=== PATIENT | male | born 1965 | race Caucasian/White ===

== ENCOUNTER 2016-10-08 22:21 | Inpatient (IN) ==
[2016-10-08] MEDS ORDERED: Ondansetron 4 MG/2 ML VIAL IVP ONE (23:40)
[2016-10-08] MEDS ORDERED: *HR* Morphine 2 MG/ML SYRINGE IVP ONE (23:40)
[2016-10-08] MEDS ORDERED: 0.9 % Sodium Chloride 1,000 ML IVC ONE (23:40)
[2016-10-08 23:57] LABS: Bilirubin,Urine Small (Negative); Blood,Urine Negative (Negative); Clarity,Urine Clear (Clear); Color,Urine Yellow (Yellow); Glucose,Urine (UA) >=1000 mg/dL (Normal); Ketones,Urine 40 mg/dL (Negative); Leukocyte Esterase,Urine Negative (Negative); Nitrite,Urine Negative (Negative); PH,Urine 5.5 pH Units (5.0-8.0); Protein,Urine 100 mg/dL (Neg-Trace); Specific Gravity,Urine > 1.030 (1.010-1.025); Urobilinogen,Urine Normal (Normal)
[2016-10-09 00:04] LABS: Basophils % 0.2 %; Eosinophils # 0.2 K/mcL (0.0-0.6); Eosinophils % 2.2 %; Hematocrit 50.4 % (37.5-50.1); Hemoglobin 18.4 g/dL (12.9-16.9); Immature Granulocytes % 0.1 % (0-4); Lymphocytes # 1.6 K/mcL (0.6-4.6); Mean Corpuscular HGB Conc 36.5 g/dL (31.6-35.5); Mean Corpuscular Hemoglobin 30.4 pg (28.0-33.3); Mean Corpuscular Volume 83.3 fL (83.0-100.0); Mean Platelet Volume 11.1 fL (9.4-12.4); Monocytes # 0.9 K/mcL (0.0-1.3); Monocytes % 10.5 %; Neutrophils # 6.1 K/mcL (1.6-8.9); Platelet Count 211 K/mcL (140-400); Red Blood Count 6.05 M/mcL (4.19-5.50); Red Cell Distribution Width 12.6 % (11.5-14.5)
[2016-10-09 00:11] LABS: Granular Casts,Urine Few per lpf (None Seen); Squamous Epithelial Cell,Urine Few per lpf (None-Few); WBC,Urine 0-3 per hpf (0-3)
[2016-10-09 00:19] LABS: Alanine Aminotransferase 21 Units/L (0-55); Albumin 3.5 g/dL (3.5-5.0); Albumin/Globulin Ratio 0.8 (1.1-2.2); Alkaline Phosphatase 100 Units/L (38-126); Amylase 27 Units/L (25-125); Aspartate Amino Transferase 12 Units/L (5-34); BUN/Creatinine Ratio 15 (6-26); Bilirubin,Direct 0.3 mg/dL (0.0-0.5); Bilirubin,Total 1.3 mg/dL (0.2-1.2); Blood Urea Nitrogen 14 mg/dL (8-26); Calcium 9.3 mg/dL (8.6-10.8); Carbon Dioxide 19 mEq/L (19-29); Chloride 99 mEq/L (98-109); Globulin 4.4 g/dL (2.4-3.5); Glucose 394 mg/dL (70-99); Lipase 41 Units/L (8-78); Osmolality,Calculated 291 (280-300); Potassium 3.6 mEq/L (3.5-4.5); Sodium 132 mEq/L (136-145); Total Protein 7.9 g/dL (6.0-8.3); eGFR For African Americans > 60 (> 60); eGFR For Non-African Americans > 60 (> 60)
[2016-10-09 00:45] LABS: Platelet Estimate Normal (Normal)
[2016-10-09] MEDS ORDERED: Promethazine 25 MG in 0.9 % Sodium Chloride 50 ML IVPB ONE (00:49)
[2016-10-09] MEDS ORDERED: *HR* Promethazine 25 MG/ML VIAL IV ONE (01:00)
[2016-10-09] MEDS ORDERED: 0.9 % Sodium Chloride 1,000 ML IVC ONE (02:18)
--- NOTE | 2016-10-09 02:18 | Emergency Department Note ---
Disposition Clinical Impression: Ketosis, SBO (small bowel obstruction) Abdominal pain Qualifiers: Abdominal location: generalized Qualified Code(s): R10.84 - Generalized abdominal pain Intractable vomiting with nausea Qualifiers: Vomiting type: unspecified Qualified Code(s): R11.2 - Nausea with vomiting, unspecified Hyperglycemia due to type 2 diabetes mellitus Qualifiers: Diabetes mellitus gang supervisor pipe lines insulin use: without gang supervisor pipe lines use Qualified Code(s ): E11.65 - Type 2 diabetes mellitus with hyperglycemia Disposition: Admitted As Inpatient Condition: Fair Referrals: NO,PCP [Non-Partnered Physician] - Forms: Work/School Release, ED Satisfaction Letter Abdominal Pain HPI - General Chief Complaint: ED Abdominal Pain Stated Complaint: NV Time Seen by Provider: 10/08/16 23:30 Source: patient, family Mode of arrival: private vehicle Limitations: no limitations Nursing Notes Reviewed: Yes Vital Signs Reviewed: Yes - History of Present Illness Pt Subjective Complaint: abdominal pain, other (nausea and vomiting) Onset (ago): day(s) (4) Consistency: constant Location: diffuse Pain Severity: moderate Pain Scale: 8 Quality: aching, fullness Radiation: none Migration to: no migration Improves with: nothing Worsens with: vomiting Context: history of similar episodes (Dx: Gastroparesis - 20+ years) Associated symptoms: Reports: nausea, vomiting. Denies: diarrhea, fever, chills , constipation, dysuria, hematemesis, hematochezia, melena, hematuria, anorexia , syncope Treatments prior to arrival: none - Related Data Home Medications Medication Instructions Recorded Confirmed ClonazePAM [Klonopin] 0.5 mg PO BID 12/25/15 12/25/15 Dronabinol [Marinol] 5 mg PO 12/25/15 Escitalopram [Lexapro] 12/25/15 Esomeprazole Magnesium [Nexium] 40 mg PO 12/25/15 Fenofibrate Nanocrystallized 48 mg PO 12/25/15 [Tricor] Metoprolol XL (24 HR) Succ [Toprol 25 mg PO DAILY 12/25/15 12/25/15 XL] Previous Rx's Medication Instructions Recorded Azithromycin [Azithromycin 6-Tab 250 mg PO PER PKG DI #6 tab 12/25/15 Pack] Promethazine/Codeine 5 ml PO Q6HR #120 ml 12/25/15 [Phenergan/Codeine] Hydrocodone/Acetaminophen [[place] 1 - 2 each PO Q6H PRN #20 tablet 03/14/16 5-325 Tablet] Ibuprofen [Motrin] 600 mg PO Q8HR PRN #15 tab 03/14/16 Allergies Allergy/AdvReac Type Severity Reaction Status Date / Time No Known Allergies Allergy Verified 10/08/16 22:31 All systems ED: reviewed and negative except as stated. Constitutional: Denies: fever, chills, weakness Cardiovascular: Denies: chest pain, palpitations, dyspnea on exertion, orthopnea , edema, syncope Respiratory: Denies: cough, dyspnea Gastrointestinal: Reports: as per HPI, abdominal pain, nausea, vomiting. Denies : diarrhea, constipation, hematemesis, melena, hematochezia Genitourinary: Denies: urgency, dysuria, frequency, hematuria Musculoskeletal: Denies: back pain Integumentary: Denies: rash Neurological: Denies: headache Hematological/Lymphatic: Denies: easy bleeding, easy bruising Abdominal Pain PMH - Past Medical History Medical history: Reports: diabetes, hyperlipidemia, hypertension Male Surgical History: Reports: cholecystectomy, sinus surgery Psychiatric history: Reports: anxiety, depression - Social History Smoking status: Current every day smoker Alcohol use: Reports: occasionally Drug use: Reports: none Physical Exam - General Limitations: no limitations General appearance: alert, in no apparent distress - Head Head exam: atraumatic, normocephalic, normal inspection - Eye Eye exam: Present: normal appearance, PERRL. Absent: scleral icterus, conjunctival injection, periorbital swelling - ENT ENT exam: mucous membranes dry - Neck Neck exam: Present: normal inspection, full ROM, trachea midline. Absent: meningismus - Chest Chest inspection: Present: normal inspection - Respiratory Respiratory exam: Present: normal lung sounds bilaterally. Absent: respiratory distress, wheezes - Cardiovascular Cardiovascular exam: Present: normal rhythm, tachycardia, normal heart sounds - Abdominal Exam Abdominal exam: Present: soft, tenderness, distention, hypoactive bowel sounds. Absent: guarding, rebound, rigidity, mass Abdominal tenderness: Present: diffuse, moderate - Extremities Exam Extremities exam: Present: normal inspection. Absent: pedal edema - Neurological Exam Neurological exam: Present: alert, oriented X3, CN II-XII intact, normal gait - Psychiatric Psychiatric exam: Present: normal affect, normal mood - Skin Skin exam: Present: warm, dry, intact, normal color Course Course Narrative: Patient has history of gastroparesis. He has been seen by numerous specialists over the past 20 years For this. He has episodes of prolonged vomiting which resulted in dehydration. Sometimes he has to come to the emergency department, but usually it resolves after a couple days. This episode has been going on for the past four days. He has not been able to take any of his medications. He denies fever, chills, diarrhea or constipation. He had a small bowel movement yesterday. His past surgical history includes cholecystectomy. We will check labs and CT of the abdomen and pelvis. Patient's labs show hyperglycemia with ketosis, but a normal CO2. White blood cell count is normal. He has had 2 L of normal saline. His pulse is improving. Pain and nausea are improved as well. Patient is dehydrated and unable to take his medications. CT is pending. He will most likely need to be admitted for further evaluation and management. Case has been discussed with Dr. Jimenez. He has seen the patient and agrees with the assessment and plan. CT has been read by the radiologist as small bowel obstruction with transition point in mid abdomen. Will place a NG tube and admit. Patient states that he has been told he had a SBO in the past but ended up not having one afterall. - Reevaluation(s) Reevaluation #1: pain better, but distention seems to be worse. Time: 02:18 Vital Signs Temperature 97.2 F L 10/08/16 22:26 Pulse Rate 104 10/08/16 22:26 Respiratory Rate 16 10/08/16 22:26 Blood Pressure 142/102 10/08/16 22:26 O2 Sat by Pulse Oximetry 94 L 10/08/16 22:26 Temperature 97.2 F L 10/08/16 22:26 Pulse Rate 104 10/08/16 22:26 Respiratory Rate 16 10/08/16 22:26 Blood Pressure 142/102 10/08/16 22:26 O2 Sat by Pulse Oximetry 94 L 10/08/16 22:26 Oxygen Delivery Oxygen Delivery Room Air Abdominal Pain - Medical Records Medical records reviewed: Yes I reviewed the patient's medical records. - Lab Data Lab results reviewed: Yes I reviewed the patient's lab results. Lab results narrative: Laboratory Last Values WBC 8.8 K/mcL (4.3-11.1) 10/08/16 23:55 RBC 6.05 M/mcL (4.19-5.50) H 10/08/16 23:55 Hgb 18.4 g/dL (12.9-16.9) H 10/08/16 23:55 Hct 50.4 % (37.5-50.1) H 10/08/16 23:55 MCV 83.3 fL (83.0-100.0) 10/08/16 23:55 MCH 30.4 pg (28.0-33.3) 10/08/16 23:55 MCHC 36.5 g/dL (31.6-35.5) H 10/08/16 23:55 RDW 12.6 % (11.5-14.5) 10/08/16 23:55 Plt Count 211 K/mcL (140-400) 10/08/16 23:55 MPV 11.1 fL (9.4-12.4) 10/08/16 23:55 Immature Gran % 0.1 % (0-4) 10/08/16 23:55 Seg Neutrophils % 69.0 % 10/08/16 23:55 Lymphocytes % 18.0 % 10/08/16 23:55 Monocytes % 10.5 % 10/08/16 23:55 Eosinophils % 2.2 % 10/08/16 23:55 Basophils % 0.2 % 10/08/16 23:55 Neutrophils # 6.1 K/mcL (1.6-8.9) 10/08/16 23:55 Lymphocytes # 1.6 K/mcL (0.6-4.6) 10/08/16 23:55 Monocytes # 0.9 K/mcL (0.0-1.3) 10/08/16 23:55 Eosinophils # 0.2 K/mcL (0.0-0.6) 10/08/16 23:55 Basophils # 0.0 K/mcL (0.0-0.2) 10/08/16 23:55 Platelet Estimate Normal (Normal) 10/08/16 23:55 Sodium 132 mEq/L (136-145) L 10/08/16 23:55 Potassium 3.6 mEq/L (3.5-4.5) 10/08/16 23:55 Chloride 99 mEq/L (98-109) 10/08/16 23:55 Carbon Dioxide 19 mEq/L (19-29) 10/08/16 23:55 BUN 14 mg/dL (8-26) 10/08/16 23:55 Creatinine 0.95 mg/dL (0.72-1.25) 10/08/16 23:55 Est GFR ( Amer) > 60 (> 60) 10/08/16 23:55 Est GFR (Non-Af Amer) > 60 (> 60) 10/08/16 23:55 BUN/Creatinine Ratio 15 (6-26) 10/08/16 23:55 Glucose 394 mg/dL (70-99) H 10/08/16 23:55 Calculated Osmolality 291 (280-300) 10/08/16 23:55 Calcium 9.3 mg/dL (8.6-10.8) 10/08/16 23:55 Total Bilirubin 1.3 mg/dL (0.2-1.2) H 10/08/16 23:55 Direct Bilirubin 0.3 mg/dL (0.0-0.5) 10/08/16 23:55 Indirect Bilirubin 1.0 mg/dL (0.0-1.2) 10/08/16 23:55 AST 12 Units/L (5-34) 10/08/16 23:55 ALT 21 Units/L (0-55) 10/08/16 23:55 Alkaline Phosphatase 100 Units/L (38-126) 10/08/16 23:55 Serum Total Protein 7.9 g/dL (6.0-8.3) 10/08/16 23:55 Albumin 3.5 g/dL (3.5-5.0) 10/08/16 23:55 Globulin 4.4 g/dL (2.4-3.5) H 10/08/16 23:55 Albumin/Globulin Ratio 0.8 (1.1-2.2) L 10/08/16 23:55 Amylase 27 Units/L (25-125) 10/08/16 23:55 Lipase 41 Units/L (8-78) 10/08/16 23:55 Beta-Hydroxybutyric Acd 0.92 mmol/L (0.02-0.27) H 10/08/16 23:55 Urine Color Yellow (Yellow) 10/08/16 23:29 Urine Clarity Clear (Clear) 10/08/16 23:29 Urine pH 5.5 pH Units (5.0-8.0) 10/08/16 23:29 Ur Specific [place] > 1.030 (1.010-1.025) H 10/08/16 23:29 Urine Protein 100 mg/dL (Neg-Trace) H 10/08/16 23: Urine Glucose (UA) >=1000 mg/dL (Normal) H 10/08/16 23: Urine Ketones 40 mg/dL (Negative) H 10/08/16 23:29 Urine Blood Negative (Negative) 10/08/16 23: Urine Nitrite Negative (Negative) 10/08/16 23: Urine Bilirubin Small (Negative) H 10/08/16 23: Urine Urobilinogen Normal mg/dL (Normal) 10/08/16 23:29 Ur Leukocyte Esterase Negative (Negative) 10/08/16 23:29 Urine Microscopic WBC 0-3 per hpf (0-3) 10/08/16 23:29 Ur Squamous Epith Cells Few per lpf (None-Few) 10/08/16 23:29 Granular Casts Few per lpf (None Seen) H 10/08/16 23:29 Ur Culture Indicated? NO (NO) 10/08/16 23:29 Result diagrams: 10/08/16 23:55 10/08/16 23:55 Lab Results 10/08/16 10/08/16 10/08/16 Range/Units 23:29 23:55 23:55 WBC 8.8 (4.3-11.1) K/mcL RBC 6.05 H (4.19-5.50) M/mcL Hgb 18.4 H (12.9-16.9) g/dL Hct 50.4 H (37.5-50.1) % MCV 83.3 (83.0-100.0) fL MCH 30.4 (28.0-33.3) pg MCHC 36.5 H (31.6-35.5) g/dL RDW 12.6 (11.5-14.5) % Plt Count 211 (140-400) K/mcL MPV 11.1 (9.4-12.4) fL Immature Gran % 0.1 (0-4) % Seg Neutrophils % 69.0 % Lymphocytes % 18.0 % Monocytes % 10.5 % Eosinophils % 2.2 % Basophils % 0.2 % Neutrophils # 6.1 (1.6-8.9) K/mcL Lymphocytes # 1.6 (0.6-4.6) K/mcL Monocytes # 0.9 (0.0-1.3) K/mcL Eosinophils # 0.2 (0.0-0.6) K/mcL Basophils # 0.0 (0.0-0.2) K/mcL Platelet Estimate Normal (Normal) Sodium 132 L (136-145) mEq/L Potassium 3.6 (3.5-4.5) mEq/L Chloride 99 (98-109) mEq/L Carbon Dioxide 19 (19-29) mEq/L BUN 14 (8-26) mg/dL Creatinine 0.95 (0.72-1.25) mg/dL Est GFR ( Amer) > 60 (> 60) Est GFR (Non-Af Amer) > 60 (> 60) BUN/Creatinine Ratio 15 (6-26) Glucose 394 H (70-99) mg/dL Calculated Osmolality 291 (280-300) Calcium 9.3 (8.6-10.8) mg/dL Total Bilirubin 1.3 H (0.2-1.2) mg/dL Direct Bilirubin 0.3 (0.0-0.5) mg/dL Indirect Bilirubin 1.0 (0.0-1.2) mg/dL AST 12 (5-34) Units/L ALT 21 (0-55) Units/L Alkaline Phosphatase 100 (38-126) Units/L Serum Total Protein 7.9 (6.0-8.3) g/dL Albumin 3.5 (3.5-5.0) g/dL Globulin 4.4 H (2.4-3.5) g/dL Albumin/Globulin Ratio 0.8 L (1.1-2.2) Amylase 27 (25-125) Units/L Lipase 41 (8-78) Units/L Beta-Hydroxybutyric Acd (0.02-0.27) mmol/L Urine Color Yellow (Yellow) Urine Clarity Clear (Clear) Urine pH 5.5 (5.0-8.0) pH Units Ur Specific [place] > 1.030 H (1.010-1.025) Urine Protein 100 H (Neg-Trace) mg/dL Urine Glucose (UA) >=1000 H (Normal) mg/dL Urine Ketones 40 H (Negative) mg/dL Urine Blood Negative (Negative) Urine Nitrite Negative (Negative) Urine Bilirubin Small H (Negative) Urine Urobilinogen Normal (Normal) mg/dL Ur Leukocyte Esterase Negative (Negative) Urine Microscopic WBC 0-3 (0-3) per hpf Ur Squamous Epith Cells Few (None-Few) per lpf Granular Casts Few H (None Seen) per lpf Ur Culture Indicated? NO (NO) 10/08/16 Range/Units 23:55 WBC (4.3-11.1) K/mcL RBC (4.19-5.50) M/mcL Hgb (12.9-16.9) g/dL Hct (37.5-50.1) % MCV (83.0-100.0) fL MCH (28.0-33.3) pg MCHC (31.6-35.5) g/dL RDW (11.5-14.5) % Plt Count (140-400) K/mcL MPV (9.4-12.4) fL Immature Gran % (0-4) % Seg Neutrophils % % Lymphocytes % % Monocytes % % Eosinophils % % Basophils % % Neutrophils # (1.6-8.9) K/mcL Lymphocytes # (0.6-4.6) K/mcL Monocytes # (0.0-1.3) K/mcL Eosinophils # (0.0-0.6) K/mcL Basophils # (0.0-0.2) K/mcL Platelet Estimate (Normal) Sodium (136-145) mEq/L Potassium (3.5-4.5) mEq/L Chloride (98-109) mEq/L Carbon Dioxide (19-29) mEq/L BUN (8-26) mg/dL Creatinine (0.72-1.25) mg/dL Est GFR ( Amer) (> 60) Est GFR (Non-Af Amer) (> 60) BUN/Creatinine Ratio (6-26) Glucose (70-99) mg/dL Calculated Osmolality (280-300) Calcium (8.6-10.8) mg/dL Total Bilirubin (0.2-1.2) mg/dL Direct Bilirubin (0.0-0.5) mg/dL Indirect Bilirubin (0.0-1.2) mg/dL AST (5-34) Units/L ALT (0-55) Units/L Alkaline Phosphatase (38-126) Units/L Serum Total Protein (6.0-8.3) g/dL Albumin (3.5-5.0) g/dL Globulin (2.4-3.5) g/dL Albumin/Globulin Ratio (1.1-2.2) Amylase (25-125) Units/L Lipase (8-78) Units/L Beta-Hydroxybutyric Acd 0.92 H (0.02-0.27) mmol/L Urine Color (Yellow) Urine Clarity (Clear) Urine pH (5.0-8.0) pH Units Ur Specific [place] (1.010-1.025) Urine Protein (Neg-Trace) mg/dL Urine Glucose (UA) (Normal) mg/dL Urine Ketones (Negative) mg/dL Urine Blood (Negative) Urine Nitrite (Negative) Urine Bilirubin (Negative) Urine Urobilinogen (Normal) mg/dL Ur Leukocyte Esterase (Negative) Urine Microscopic WBC (0-3) per hpf Ur Squamous Epith Cells (None-Few) per lpf Granular Casts (None Seen) per lpf Ur Culture Indicated? (NO) - Radiology Data Radiology results reviewed: Yes I reviewed the patient's radiology results. Attestation Statement - Attestation Attestation: I, Himanshu Jimenez MD, personally performed a history and physical exam of the patient and discussed their management with the midlevel provicer, PAC/POLITICAL SCIENCE PROFESSOR. I reviewed the midlevel provider's note and agree with the documented findings, medical decision making, and plan of care. 51-year-old male with history of gastroparesis presents to the emergency department with a complaint of several days of nausea vomiting and abdominal pain. He complains of abdominal distention in his abdomen is firm and tender. No diarrhea. He has been passing gas. No GI bleed symptoms. No fever. Patient has insulin-dependent diabetic and has not been eating or drinking much and has not been taking his insulin. On examination patient is a well-developed well-nourished male in no acute distress. He is alert and oriented 3. There is no cyanosis or diaphoresis. Breath sounds are clear and equal bilaterally. Heart regular rate and rhythm. Abdomen is mildly firm and distended with [id number] diffuse tenderness on direct palpation. No guarding or rebound tenderness. Bowel sounds markedly decreased. No CVA tenderness. Labs reviewed. Hyperglycemia and ketosis. CT of the abdomen and pelvis consistent with a small bowel obstruction with a transition point in the right mid abdomen. The hospitalist, Dr. Stringer, was consulted and accepted admission of the patient.
[2016-10-09] MEDS ORDERED: Naloxone 0.4 MG/ML INJ IVP PRN (03:44)
[2016-10-09] MEDS ORDERED: Acetaminophen 325 MG TABLET PO PRN (03:44)
[2016-10-09] MEDS ORDERED: *HR* Morphine 2 MG/ML SYRINGE IVP PRN (03:44)
[2016-10-09] MEDS ORDERED: D5% in Water 1,000 ML IV PRN (03:46)
[2016-10-09] MEDS ORDERED: *HR* Dextrose 50 % in Water (Syg) 50 ML SYRINGE IVP PRN (03:46)
[2016-10-09] MEDS ORDERED: Dextrose Gel 15 GM PO PRN ×2 (03:46)
[2016-10-09] MEDS ORDERED: Insulin DETEMIR 100 UNIT/ML X5UNITS SQ SCH ×2 (03:48→04:00)
[2016-10-09] MEDS ORDERED: Ipratropium/Albuterol Neb 3 ML IH PRN (03:50)
--- NOTE | 2016-10-09 03:55 | Internal Med History&Physical ---
Date of Encounter: 10/09/16 Time of Encounter: 03:53 Assessment and Plan (1) SBO (small bowel obstruction) Current visit: Yes Status: Acute Acute small bowel obstruction Put an NG tube, morphine and Zofran as needed Consider surgical consult if not improving Aggressive hydration (2) Ketosis Current visit: Yes Status: Acute Possible mild acute DKA The patient is going to be nothing by mouth we will try to treat the patient was subcutaneous insulin 5 units of Levemir (he takes 45 units at home) Insulin sliding scale every 6 hours We will switch to insulin drip if not improving (3) Intractable vomiting with nausea Current visit: Yes Status: Acute Qualifiers: Vomiting type: unspecified Qualified Code(s): R11.2 - Nausea with vomiting , unspecified (4) Hypertension Current visit: Yes Status: Acute Hydralazine as needed Qualifiers: Hypertension type: essential hypertension Qualified Code(s): I10 - Essential (primary) hypertension (5) Tobacco abuse Current visit: Yes Status: Acute Smoking cessation counseling given for 5 minutes (6) Dehydration Current visit: Yes Status: Acute (7) Hyperglycemia due to type 2 diabetes mellitus Current visit: Yes Status: Acute Also pseudohyponatremia Protonix IV for GI prophylaxis and subcutaneous tinzaparin for DVT prophylaxis The patient will be admitted as inpatient, he is expected to stay more than to midnight. Full code. Time spent on this admission 40 minutes Time spent on this admission 45 minutes. Qualifiers: Diabetes mellitus intermediate manager insulin use: without intermediate manager use Qualified Code(s): E11.65 - Type 2 diabetes mellitus with hyperglycemia Internal Medicine - H&P: HPI Chief complaint: Abdominal pain Plans for Post Hospital Care: Home History of present illness: Mr. Cabrera is a 51 year old male with a past medical history of diabetes type 2 insulin-dependent, gastroparesis, comes to the emergency room complaining of 4 days of nausea and vomiting, he has vomited 4 times in the past 24 hours, has not been able to keep anything down. He is very dehydrated and has not been able to take his medications. CT scan of the abdomen shows small bowel obstruction with a transition point in the right mid abdomen. His creatinine has increased from 0.78 up to 0.95. Hemoglobin is 18.4 and hematocrit 50.4, glucose is 394 sodium 132 with an anion gap of 14, beta-hydroxybutyric acid is 0.92. Heart rate is 104 blood pressure 142/102. Denies any hematemesis, denies any chest pain or shortness of breath. Not passing gas Past Med Surg Social Fam HX - Past Medical History Medical history: diabetes (Insulin-dependent), hyperlipidemia, hypertension, other (Depression, hypertriglyceridemia, anxiety, tobacco abuse, gastroparesis) Psychiatric history: anxiety, depression - Past Surgical History Surgical History: cholecystectomy, sinus surgery - Social History Smoking Status: Current every day smoker Packs per day: 1 pack per day Smokeless Tobacco Status: No Alcohol use: occasionally Drug use: none - Additional Family History Additional family history: Father and mother with diabetes and father with esophageal cancer Internal Medicine - H&P: Meds Azithromycin [Azithromycin 6-Tab Pack] 250 mg PO PER PKG DI #6 tab 12/25/15 [Rx] ClonazePAM [Klonopin] 0.5 mg PO BID 12/25/15 [History] Dronabinol [Marinol] 5 mg PO 12/25/15 [History] Escitalopram [Lexapro] 12/25/15 [History] Esomeprazole Magnesium [Nexium] 40 mg PO 12/25/15 [History] Fenofibrate Nanocrystallized [Tricor] 48 mg PO 12/25/15 [History] Metoprolol XL (24 HR) Succ [Toprol XL] 25 mg PO DAILY 12/25/15 [History] Promethazine/Codeine [Phenergan/Codeine] 5 ml PO Q6HR #120 ml 12/25/15 [Rx] Hydrocodone/Acetaminophen [[place] 5-325 Tablet] 1 - 2 each PO Q6H PRN #20 tablet 03/14/16 [Rx] Ibuprofen [Motrin] 600 mg PO Q8HR PRN #15 tab 03/14/16 [Rx] Allergies No Known Allergies Allergy (Verified 10/08/16 22:31) All Systems PM: A 10-system review of systems was performed and is negative for pertinent findings except as documented above in the HPI. Review of systems: No fevers or chills, no dysuria, other systems out of the 10 reviewed were negative. Abdominal pain is 8 out of 10 diffuse and crampy like - Constitutional Vitals: Temp Pulse Resp BP Pulse Ox 97.2 F L 104 16 142/102 94 L 10/08/16 22:26 10/08/16 22:26 10/08/16 22:26 10/08/16 22:26 10/08/16 22:26 General appearance: Present: A&O X 3 Exam: Dry mucosa - Head Head exam: Present: atraumatic, normocephalic - Eye Eye exam: Present: PERRL, conjuntiva pink, sclera anicteric Pupils: Present: PERRL - Neck Neck exam general surgery: Present: supple, trachea midline. Absent: lymphadenopathy - Respiratory Respiratory exam: Present: CTAB. Absent: accessory muscle use, rales, rhonchi, wheezes - Cardiovascular Cardiovascular exam: Present: RRR, +S1, +S2. Absent: diastolic murmur, gallop, rubs, systolic murmur - GI/Abdominal GI/Abdominal exam: Present: distended (Abdomen is distended and mildly diffusely tender), normal bowel sounds, soft, no peritoneal signs. Absent: tenderness - Extremities Exam Extremities exam: Present: warm, radial pulses palpable and symetrical. Absent : calf tenderness, cyanotic, pedal edema - Neurological Exam Neurological exam: Present: CN II-XII intact, oriented X3, no focal deficits. Absent: pronater drift, facial droop, speech deficit - Skin Skin exam: Present: dry, intact Internal Med - H&P Results - Labs CBC & Chem 7: 10/08/16 23:55 10/08/16 23:55 Labs: Short CBC 10/08/16 Range/Units 23:55 WBC 8.8 (4.3-11.1) K/mcL Hgb 18.4 H (12.9-16.9) g/dL Hct 50.4 H (37.5-50.1) % Plt Count 211 (140-400) K/mcL Neutrophils # 6.1 (1.6-8.9) K/mcL BMP 10/08/16 23:55 Sodium 132 L Potassium 3.6 Chloride 99 Carbon Dioxide 19 BUN 14 Creatinine 0.95 Glucose 394 H Calcium 9.3 Liver Function 10/08/16 Range/Units 23:55 Total Bilirubin 1.3 H (0.2-1.2) mg/dL Direct Bilirubin 0.3 (0.0-0.5) mg/dL AST 12 (5-34) Units/L ALT 21 (0-55) Units/L Alkaline Phosphatase 100 (38-126) Units/L Albumin 3.5 (3.5-5.0) g/dL Urine 10/08/16 Range/Units 23:29 Urine Color Yellow (Yellow) Urine Clarity Clear (Clear) Urine pH 5.5 (5.0-8.0) pH Units Ur Specific [place] > 1.030 H (1.010-1.025) Urine Protein 100 H (Neg-Trace) mg/dL Urine Glucose (UA) >=1000 H (Normal) mg/dL - Impressions ITS Impressions Abdomen/Pelvis CT 10/09/16 01:57 IMPRESSION: Small bowel obstruction with a transition point in the right mid abdomen. D/ / He Grimaldo MD / He Grimaldo MD Interpreting Provider: He Grimaldo MD
[2016-10-09] MEDS ORDERED: *HR* HYDROmorphone (PF) 1 MG/ML SYRINGE IV ONE (04:27)
[2016-10-09 05:00] LABS: BUN/Creatinine Ratio 18 (6-26); Blood Urea Nitrogen 13 mg/dL (8-26); Calcium 8.6 mg/dL (8.6-10.8); Carbon Dioxide 16 mEq/L (19-29); Chloride 104 mEq/L (98-109); Glucose 305 mg/dL (70-99); Osmolality,Calculated 290 (280-300); Potassium 4.1 mEq/L (3.5-4.5); Sodium 134 mEq/L (136-145); eGFR For African Americans > 60 (> 60); eGFR For Non-African Americans > 60 (> 60)
[2016-10-09] MEDS: 0.9 % Sodium Chloride 1,000 ML IVC SCH ×3 (05:19→16:11)
[2016-10-09] MEDS: *HR* Heparin 5,000 UNIT/ML VIAL SQ SCH ×2 (06:00→17:44)
[2016-10-09] MEDS: *HR* Metoprolol 5 MG/5 ML VIAL IVP SCH ×4 (06:00→23:24)
[2016-10-09] MEDS: Insulin LISPRO 300 UNITS/3 ML VIAL SQ SCH ×4 (06:01→23:28)
[2016-10-09] MEDS ORDERED: clonazePAM 0.5 MG TABLET PO SCH (09:00)
[2016-10-09] MEDS: Insulin DETEMIR 100 UNIT/ML X5UNITS SQ SCH (09:25)
[2016-10-09] MEDS: Pantoprazole 40 MG VIAL IVP SCH (09:25)
[2016-10-09] MEDS: Nicotine 21 MG PATCH.TD24 TD SCH (09:25)
[2016-10-09] MEDS: Ondansetron 4 MG/2 ML VIAL IVP PRN ×2 (09:25→20:53)
[2016-10-09] MEDS: *HR* HYDROmorphone (PF) 1 MG/ML SYRINGE IVP SCH ×2 (09:26→17:45)
--- NOTE | 2016-10-09 10:57 | Internal Med Progress Note ---
Date of Encounter: 10/09/16 Time of Encounter: 10:55 - Assessment and plan (1) Dehydration Current Visit: Yes Status: Acute Assessment and plan: Continue IV fluids (2) Hyperglycemia due to type 2 diabetes mellitus Current Visit: Yes Status: Acute Assessment and plan: Insulin sliding scale every 4 hours Qualifiers: Diabetes mellitus long-term insulin use: without long-term use Qualified Code(s): E11.65 - Type 2 diabetes mellitus with hyperglycemia (3) Intractable vomiting with nausea Current Visit: Yes Status: Acute Assessment and plan: Infusion of gastroparesis and nausea will add Reglan. Patient started to pass some gas. Protonix 40 mg daily Qualifiers: Vomiting type: unspecified Qualified Code(s): R11.2 - Nausea with vomiting , unspecified (4) SBO (small bowel obstruction) Current Visit: Yes Status: Acute Assessment and plan: Conservative management discussed with surgery team check KUB next morning. Close monitoring of electrolytes check magnesium and phosphorus (5) Tobacco abuse Current Visit: Yes Status: Acute Assessment and plan: Nicotine batch - Subjective Interval history: Patient is still complaining of diffuse abdominal pain and distention much better compared to yesterday 1500 out from NG tube since arrival to emergency room. Patient states that he is passing some gas - Constitutional Vitals: Temp Pulse Resp BP Pulse Ox 98 F 100 18 140/95 92 L 10/09/16 07:22 10/09/16 07:22 10/09/16 07:22 10/09/16 07:22 10/09/16 07:22 General appearance: Present: A&O X 3 - Head Head exam: Present: atraumatic, normocephalic - Respiratory Respiratory exam: Present: CTAB. Absent: accessory muscle use, rales, rhonchi, wheezes - Cardiovascular Cardiovascular exam: Present: RRR, +S1, +S2. Absent: diastolic murmur, gallop, rubs, systolic murmur - GI/Abdominal GI/Abdominal exam: Present: distended, hypoactive bowel sounds, soft, tenderness (Diffuse abdominal tenderness more in the umbilicus area and left upper quadrant area), no peritoneal signs - Extremities Exam Extremities exam: Present: warm, radial pulses palpable and symetrical. Absent : calf tenderness, cyanotic, pedal edema Internal Medicine: Result - Labs CBC & Chem 7: 10/08/16 23:55 10/09/16 04:30 Labs: BMP 10/09/16 04:30 Sodium 134 L Potassium 4.1 Chloride 104 Carbon Dioxide 16 L BUN 13 Creatinine 0.72 Glucose 305 H Calcium 8.6 - Impressions Impressions Abdomen/Pelvis CT 10/09/16 01:57 IMPRESSION: Small bowel obstruction with a transition point in the right mid abdomen. Abnormal lab results RBC 6.05 M/mcL (4.19-5.50) H 10/08/16 23:55 Hgb 18.4 g/dL (12.9-16.9) H 10/08/16 23:55 Hct 50.4 % (37.5-50.1) H 10/08/16 23:55 MCHC 36.5 g/dL (31.6-35.5) H 10/08/16 23:55 Sodium 134 mEq/L (136-145) L 10/09/16 04:30 Carbon Dioxide 16 mEq/L (19-29) L 10/09/16 04:30 Glucose 305 mg/dL (70-99) H 10/09/16 04:30 POC Glucose 256 (58-89) H 10/09/16 05:22 Total Bilirubin 1.3 mg/dL (0.2-1.2) H 10/08/16 23:55 Globulin 4.4 g/dL (2.4-3.5) H 10/08/16 23:55 Albumin/Globulin Ratio 0.8 (1.1-2.2) L 10/08/16 23:55 Beta-Hydroxybutyric Acd 0.92 mmol/L (0.02-0.27) H 10/08/16 23:55 Ur Specific [place] > 1.030 (1.010-1.025) H 10/08/16 23:29 Urine Protein 100 mg/dL (Neg-Trace) H 10/08/16 23:29 Urine Glucose (UA) >=1000 mg/dL (Normal) H 10/08/16 23:29 Urine Ketones 40 mg/dL (Negative) H 10/08/16 23:29 Urine Bilirubin Small (Negative) H 10/08/16 23:29 Granular Casts Few per lpf (None Seen) H 10/08/16 23:29 Intake & Output 10/06/16 10/07/16 10/08/16 10/09/16 23:59 23:59 23:59 23:59 Output Total 2225 / 2225 Balance -2225 / -2225 Weight 96.162 kg 89.6 kg Consult Discharge Plan - Plan Referrals: Esther Elam MD [Primary Care Provider] - 10/25/16 10:45 am
[2016-10-09] MEDS: Metoclopramide 10 MG/2 ML VIAL IVP SCH ×3 (11:36→23:24)
[2016-10-09 11:59] LABS: Magnesium 1.7 mg/dL (1.6-2.6); Phosphorous 3.5 mg/dL (2.3-4.7)
[2016-10-09 12:00] LABS: BUN/Creatinine Ratio 21 (6-26); Blood Urea Nitrogen 14 mg/dL (8-26); Calcium 8.7 mg/dL (8.6-10.8); Carbon Dioxide 24 mEq/L (19-29); Chloride 105 mEq/L (98-109); Glucose 219 mg/dL (70-99); Osmolality,Calculated 293 (280-300); Potassium 3.4 mEq/L (3.5-4.5); Sodium 138 mEq/L (136-145); eGFR For African Americans > 60 (> 60); eGFR For Non-African Americans > 60 (> 60)
[2016-10-09] MEDS: *HR* HYDROmorphone 2 MG/ML SYRINGE IVP PRN ×2 (14:59→21:02)
--- NOTE | 2016-10-09 15:56 | General Surgery Consult Note ---
<Maggie Stroud - Last Filed: 10/09/16 15:49> Date of Encounter: 10/09/16 Time of Encounter: 15:30 Assessment and Plan (1) Partial small bowel obstruction Current Visit: Yes Status: Acute Continue conservative therapy: Bowel rest with NG tube to LIWS Serial abdominal exams Supportive care IV fluids Consider SBFT in the next 24-48 hours No indication for urgent surgical intervention at this time Will continue to follow (2) Gastroparesis Current Visit: Yes Status: Chronic chronic for the past 25 years management per medicine service (3) Diabetes mellitus Current Visit: Yes Status: Chronic Hyperglycemic Managment per medicine service Qualifiers: Diabetes mellitus type: type 2 Diabetes mellitus complication status: with hyperglycemia Diabetes mellitus terminal supervisor insulin use: with skilled nursing use Qualified Code(s): E11.65 - Type 2 diabetes mellitus with hyperglycemia; Z79.4 - intermediate manager (current) use of insulin (4) Hypertension Current Visit: Yes Status: Acute Normotensive Management per medicine service Qualifiers: Hypertension type: essential hypertension Qualified Code(s): I10 - Essential (primary) hypertension History of Present Illness Consult date: 10/09/16 Reason for consult: other (PSBO) Requesting physician: Ebony Li History of present illness: Mr. Cabrera is a very pleasant 51 year old male with a past medical history significant for Idiopathic gastroperesis (25 years), Cyclic vomiting syndrome, Hypertension, LEDY on CPAP, depression, diabetes mellitus and low back pain. He presented to the ED last night with a 4 day history of progressive abdominal discomfort with associated nausea and vomiting. He describes the abdominal pain as constant/diffuse/sharp. He admits to multiple episodes of vomiting without hematemesis of coffee ground emesis. His last bowel movement was Friday (2 days ago). He typically has a bowel movement up to 5 times per day. He did starting passing flatus today but has not had a bowel movement. Denies any melena or hematochezia. Denies any fevers/chills. Denies any shortness of breath of chest pains. He does admit to significant abdominal distention prior to the episodes of vomiting. He does report that with his gastroperesis, he does have occasional episodes of vomiting which may last up to 2 days and then resolve without intervention. He sees a specialist in [place] for management of his gastroperesis. He states that this episode was different than what he has experienced related to his gastroperesis and it did no improve. He did have a CT scan which shows changes concerning for a PSBO with a transition point in the right mid-abdomen. We have been asked to see and evaluate the patient for recommendations. Past Med Surg Social Fam HX - Past Medical History Source: patient, old records reviewed Medical history: diabetes, hyperlipidemia, hypertension, other (Idiopathic gastroparesis, chronic low back pain, obstructive sleep apnea on CPAP, Hearling loss) Psychiatric history: anxiety, depression - Past Surgical History Surgical History: cholecystectomy, orthopedic, other (right knee tendon repair) , sinus surgery (X2), other (Tonsillectomy) - Social History Smoking Status: Current every day smoker Packs per day: 1 pack per day Smokeless Tobacco Status: No Alcohol use: occasionally Drug use: none Current living situation: Home - Independent Activity Level: Independent ambulation Recent Out of Country Travel Within the Last 8 Weeks: No Exposure or Possible Exposure to Illness During Travel: No - Family History Father Living Status: Hx Family Cancer: Yes Hx Family Endocrine Disorder: Yes Medications and Allergies Dronabinol [Marinol] 2.5 mg PO AD PRN 12/25/15 [History] Esomeprazole Magnesium [Nexium] 40 mg PO DAILY 12/25/15 [History] Metoprolol XL (24 HR) Succ [Toprol XL] 100 mg PO DAILY 12/25/15 [History] Atorvastatin [Lipitor] 40 mg PO HS 10/09/16 [History] Cholestyramine 4 gm PO BIDAC 10/09/16 [History] Fenofibrate [Lofibra] 160 mg PO DAILY 10/09/16 [History] Insulin Glargine,Hum.rec.anlog [Lantus Solostar] 45 unit SQ DAILY 10/09/16 [ History] Metformin HCl [Glucophage Xr] 750 mg PO BID 10/09/16 [History] Sildenafil Citrate [Viagra] 100 mg PO DAILY PRN 10/09/16 [History] Tizanidine HCl [Zanaflex] 2 mg PO TID PRN 10/09/16 [History] Allergies No Known Allergies Allergy (Verified 10/08/16 22:31) Review of Systems All systems PM: reviewed and no additional remarkable complaints except as stated (in the HPI) All systems PM: A 10-system review of systems was performed and is negative for pertinent findings except as documented above in the HPI. General Surgery Exam Initial Vital Signs Temp Pulse Resp BP Pulse Ox 97.2 F L 104 16 142/102 94 L 10/08/16 22:26 10/08/16 22:26 10/08/16 22:26 10/08/16 22:26 10/08/16 22:26 - General physical appearance well developed, well nourished, no distress - Eyes normal ocular movement - ENT normal mucosa, atraumatic, normocephalic - Neck trachea midline - Respiratory normal respiratory effort, clear to auscultation - Cardiovascular Cardiovascular exam: Present: RRR - Abdomen Abdomen general surgery: Present: bowel sounds present, soft, distended (mildly) , tender (mildly), wound (NG tube to LIWS with clear, bilious drainage noted) - Integumentary Integumentary general surgery: Present: warm and dry - Neurologic Present: CN 2-12 grossly intact, normal coordination, normal sensation - Musculoskeletal Present: normal gait, normal posture - Psychiatric Psychiatric general surgery: Present: appropriate, oriented to person, oriented to place, oriented to time, speech is normal, memory intact Exam Initial Vital Signs Temp Pulse Resp BP Pulse Ox 97.2 F L 104 16 142/102 94 L 10/08/16 22:26 10/08/16 22:26 10/08/16 22:26 10/08/16 22:26 10/08/16 22:26 Results - Labs 10/08/16 23:55 10/09/16 11:08 Abnormal lab results RBC 6.05 M/mcL (4.19-5.50) H 10/08/16 23:55 Hgb 18.4 g/dL (12.9-16.9) H 10/08/16 23:55 Hct 50.4 % (37.5-50.1) H 10/08/16 23:55 MCHC 36.5 g/dL (31.6-35.5) H 10/08/16 23:55 Potassium 3.4 mEq/L (3.5-4.5) L 10/09/16 11:08 Creatinine 0.68 mg/dL (0.72-1.25) L 10/09/16 11:08 Glucose 219 mg/dL (70-99) H 10/09/16 11:08 POC Glucose 256 (58-89) H 10/09/16 05:22 Total Bilirubin 1.3 mg/dL (0.2-1.2) H 10/08/16 23:55 Globulin 4.4 g/dL (2.4-3.5) H 10/08/16 23:55 Albumin/Globulin Ratio 0.8 (1.1-2.2) L 10/08/16 23:55 Beta-Hydroxybutyric Acd 0.92 mmol/L (0.02-0.27) H 10/08/16 23:55 Ur Specific [place] > 1.030 (1.010-1.025) H 10/08/16 23:29 Urine Protein 100 mg/dL (Neg-Trace) H 10/08/16 23:29 Urine Glucose (UA) >=1000 mg/dL (Normal) H 10/08/16 23:29 Urine Ketones 40 mg/dL (Negative) H 10/08/16 23:29 Urine Bilirubin Small (Negative) H 10/08/16 23:29 Granular Casts Few per lpf (None Seen) H 10/08/16 23:29 Diabetes panel 10/09/16 10/09/16 Range/Units 04:30 11:08 Sodium 134 L 138 (136-145) mEq/L Potassium 4.1 3.4 L (3.5-4.5) mEq/L Chloride 104 105 (98-109) mEq/L Carbon Dioxide 16 L 24 (19-29) mEq/L BUN 13 14 (8-26) mg/dL Creatinine 0.72 0.68 L (0.72-1.25) mg/dL Glucose 305 H 219 H (70-99) mg/dL Calcium 8.6 8.7 (8.6-10.8) mg/dL Calcium panel 10/09/16 10/09/16 10/09/16 Range/Units 04:30 11:08 11:08 Calcium 8.6 8.7 (8.6-10.8) mg/dL Phosphorus 3.5 (2.3-4.7) mg/dL Pituitary panel 10/09/16 10/09/16 Range/Units 04:30 11:08 Sodium 134 L 138 (136-145) mEq/L Potassium 4.1 3.4 L (3.5-4.5) mEq/L Chloride 104 105 (98-109) mEq/L Carbon Dioxide 16 L 24 (19-29) mEq/L BUN 13 14 (8-26) mg/dL Creatinine 0.72 0.68 L (0.72-1.25) mg/dL Glucose 305 H 219 H (70-99) mg/dL Calcium 8.6 8.7 (8.6-10.8) mg/dL Adrenal panel 10/09/16 10/09/16 Range/Units 04:30 11:08 Sodium 134 L 138 (136-145) mEq/L Potassium 4.1 3.4 L (3.5-4.5) mEq/L Chloride 104 105 (98-109) mEq/L Carbon Dioxide 16 L 24 (19-29) mEq/L BUN 13 14 (8-26) mg/dL Creatinine 0.72 0.68 L (0.72-1.25) mg/dL Glucose 305 H 219 H (70-99) mg/dL Calcium 8.6 8.7 (8.6-10.8) mg/dL All other labs normal. - Imaging CT scan - abdomen: report reviewed CT scan - pelvis: report reviewed Additional studies: Abdomen/Pelvis CT 10/09/16 01:57 IMPRESSION: Small bowel obstruction with a transition point in the right mid abdomen. D/ / He Grimaldo MD / He Grimaldo MD Interpreting Provider: He Grimaldo MD X-Ray 10/09/16 10:53 IMPRESSION: Persistent moderate gaseous distention of small bowel loops throughout the abdomen. D/ / Hattie Duenas Cha, MD / Hattie Duenas Cha, MD Interpreting Provider: Hattie Duenas Cha, MD Consult Discharge Plan - Plan Referrals: Esther Elam MD [Primary Care Provider] - 10/25/16 10:45 am - Attending Attestation I examined this patient and my medical decision-making was reviewed with the FIELD SUPPORT REP/PA/Advanced Practice Nurse/Resident Physician. I agree with the documented findings, disposition and treatment plan as described except to the extent set forth below. <Sonam Paris L - Last Filed: 10/10/16 16:59> Date of Encounter: 10/10/16 Review of Systems All systems PM: A 10-system review of systems was performed and is negative for pertinent findings except as documented above in the HPI. General Surgery Exam Initial Vital Signs Temp Pulse Resp BP Pulse Ox 97.2 F L 104 16 142/102 94 L 10/08/16 22:26 10/08/16 22:26 10/08/16 22:26 10/08/16 22:26 10/08/16 22:26 Exam Initial Vital Signs Temp Pulse Resp BP Pulse Ox 97.2 F L 104 16 142/102 94 L 10/08/16 22:26 10/08/16 22:26 10/08/16 22:26 10/08/16 22:26 10/08/16 22:26 Results - Labs 10/10/16 05:08 10/10/16 05:08 Abnormal lab results Plt Count 117 K/mcL (140-400) L 10/10/16 05:08 Potassium 3.4 mEq/L (3.5-4.5) L 10/10/16 05:08 Creatinine 0.63 mg/dL (0.72-1.25) L 10/10/16 05:08 Glucose 153 mg/dL (70-99) H 10/10/16 05:08 POC Glucose 134 (58-89) H 10/10/16 11:38 Calcium 8.2 mg/dL (8.6-10.8) L 10/10/16 05:08 Total Bilirubin 1.3 mg/dL (0.2-1.2) H 10/08/16 23:55 Globulin 4.4 g/dL (2.4-3.5) H 10/08/16 23:55 Albumin/Globulin Ratio 0.8 (1.1-2.2) L 10/08/16 23:55 Beta-Hydroxybutyric Acd 0.92 mmol/L (0.02-0.27) H 10/08/16 23:55 Ur Specific [place] > 1.030 (1.010-1.025) H 10/08/16 23:29 Urine Protein 100 mg/dL (Neg-Trace) H 10/08/16 23:29 Urine Glucose (UA) >=1000 mg/dL (Normal) H 10/08/16 23:29 Urine Ketones 40 mg/dL (Negative) H 10/08/16 23:29 Urine Bilirubin Small (Negative) H 10/08/16 23:29 Granular Casts Few per lpf (None Seen) H 10/08/16 23:29 Diabetes panel 10/10/16 Range/Units 05:08 Sodium 139 (136-145) mEq/L Potassium 3.4 L (3.5-4.5) mEq/L Chloride 107 (98-109) mEq/L Carbon Dioxide 23 (19-29) mEq/L BUN 14 (8-26) mg/dL Creatinine 0.63 L (0.72-1.25) mg/dL Glucose 153 H (70-99) mg/dL Calcium 8.2 L (8.6-10.8) mg/dL Calcium panel 10/10/16 Range/Units 05:08 Calcium 8.2 L (8.6-10.8) mg/dL Pituitary panel 10/10/16 Range/Units 05:08 Sodium 139 (136-145) mEq/L Potassium 3.4 L (3.5-4.5) mEq/L Chloride 107 (98-109) mEq/L Carbon Dioxide 23 (19-29) mEq/L BUN 14 (8-26) mg/dL Creatinine 0.63 L (0.72-1.25) mg/dL Glucose 153 H (70-99) mg/dL Calcium 8.2 L (8.6-10.8) mg/dL Adrenal panel 10/10/16 Range/Units 05:08 Sodium 139 (136-145) mEq/L Potassium 3.4 L (3.5-4.5) mEq/L Chloride 107 (98-109) mEq/L Carbon Dioxide 23 (19-29) mEq/L BUN 14 (8-26) mg/dL Creatinine 0.63 L (0.72-1.25) mg/dL Glucose 153 H (70-99) mg/dL Calcium 8.2 L (8.6-10.8) mg/dL All other labs normal.
[2016-10-10] MEDS: *HR* HYDROmorphone 2 MG/ML SYRINGE IVP PRN ×4 (02:44→20:28)
[2016-10-10 05:40] LABS: Hematocrit 40.4 % (37.5-50.1); Mean Corpuscular HGB Conc 34.2 g/dL (31.6-35.5); Mean Corpuscular Hemoglobin 29.7 pg (28.0-33.3); Mean Corpuscular Volume 86.9 fL (83.0-100.0); Mean Platelet Volume 12.1 fL (9.4-12.4); Platelet Count 117 K/mcL (140-400); Red Blood Count 4.65 M/mcL (4.19-5.50); Red Cell Distribution Width 12.7 % (11.5-14.5)
[2016-10-10 05:44] LABS: Hemoglobin 13.8 g/dL (12.9-16.9)
[2016-10-10 05:58] LABS: BUN/Creatinine Ratio 22 (6-26); Blood Urea Nitrogen 14 mg/dL (8-26); Calcium 8.2 mg/dL (8.6-10.8); Carbon Dioxide 23 mEq/L (19-29); Chloride 107 mEq/L (98-109); Glucose 153 mg/dL (70-99); Osmolality,Calculated 292 (280-300); Potassium 3.4 mEq/L (3.5-4.5); Sodium 139 mEq/L (136-145); eGFR For African Americans > 60 (> 60); eGFR For Non-African Americans > 60 (> 60)
[2016-10-10] MEDS: *HR* Metoprolol 5 MG/5 ML VIAL IVP SCH ×4 (06:05→23:32)
[2016-10-10] MEDS: Metoclopramide 10 MG/2 ML VIAL IVP SCH ×4 (06:05→23:33)
[2016-10-10] MEDS: *HR* Heparin 5,000 UNIT/ML VIAL SQ SCH ×2 (06:05→17:43)
[2016-10-10] MEDS: *HR* HYDROmorphone (PF) 1 MG/ML SYRINGE IVP SCH ×2 (06:05→17:43)
[2016-10-10] MEDS: Insulin LISPRO 300 UNITS/3 ML VIAL SQ SCH ×3 (06:18→17:44)
[2016-10-10] MEDS: Nicotine 21 MG PATCH.TD24 TD SCH (08:35)
[2016-10-10] MEDS: Pantoprazole 40 MG VIAL IVP SCH (08:46)
[2016-10-10] MEDS: Insulin DETEMIR 100 UNIT/ML X5UNITS SQ SCH (08:59)
--- NOTE | 2016-10-10 10:07 | Internal Med Progress Note ---
Date of Encounter: 10/10/16 Time of Encounter: 08:15 - Assessment and plan (1) Dehydration Current Visit: Yes Status: Acute Assessment and plan: Continue IV fluids add 40 meq of potasium with IV fluids (2) Hyperglycemia due to type 2 diabetes mellitus Current Visit: Yes Status: Acute Assessment and plan: Insulin sliding scale every 4 hours Qualifiers: Diabetes mellitus residential insulin use: without ferry terminal supervisor use Qualified Code(s): E11.65 - Type 2 diabetes mellitus with hyperglycemia (3) Intractable vomiting with nausea Current Visit: Yes Status: Acute Assessment and plan: resolved Qualifiers: Vomiting type: unspecified Qualified Code(s): R11.2 - Nausea with vomiting , unspecified (4) SBO (small bowel obstruction) Current Visit: Yes Status: Acute Assessment and plan: Conservative management, may consider rebeat [place] , staff reported surgery may order CT , Awaiting surgery input (5) Tobacco abuse Current Visit: Yes Status: Acute Assessment and plan: Nicotine batch (6) Hypokalemia Current Visit: Yes Status: Acute Assessment and plan: Replace - Subjective Interval history: Patient is still complaining of diffuse abdominal pain much better compared to yesterday , low output from his nasogastric tube 150 . He is passing some gas is no bowel movement - Constitutional Vitals: Temp Pulse Resp BP Pulse Ox 97.9 F 82 16 129/81 96 10/10/16 07:29 10/10/16 07:29 10/10/16 07:29 10/10/16 07:29 10/10/16 07:29 General appearance: Present: A&O X 3 - Head Head exam: Present: atraumatic, normocephalic - Eye Eye exam: Present: conjuntiva pink, sclera anicteric - Neck Neck exam general surgery: Present: supple, trachea midline - Respiratory Respiratory exam: Present: CTAB. Absent: accessory muscle use, rales, rhonchi, wheezes - Cardiovascular Cardiovascular exam: Present: RRR, +S1, +S2. Absent: diastolic murmur, gallop, rubs, systolic murmur - GI/Abdominal GI/Abdominal exam: Present: distended, hypoactive bowel sounds, normal bowel sounds, soft, tenderness (Mild diffuse abdominal tenderness), no peritoneal signs - Extremities Exam Extremities exam: Present: warm, radial pulses palpable and symetrical. Absent : calf tenderness, cyanotic, pedal edema - Neurological Exam Neurological exam: Present: no focal deficits. Absent: pronater drift, facial droop, speech deficit - Skin Skin exam: Present: dry, intact Internal Medicine: Result - Labs CBC & Chem 7: 10/10/16 05:08 10/10/16 05:08 Labs: Short CBC 10/10/16 Range/Units 05:08 WBC 5.3 (4.3-11.1) K/mcL Hgb 13.8 D (12.9-16.9) g/dL Hct 40.4 (37.5-50.1) % Plt Count 117 L (140-400) K/mcL BMP 10/09/16 10/10/16 11:08 05:08 Sodium 138 139 Potassium 3.4 L 3.4 L Chloride 105 107 Carbon Dioxide 24 23 BUN 14 14 Creatinine 0.68 L 0.63 L Glucose 219 H 153 H Calcium 8.7 8.2 L - Impressions Impressions KUB X-Ray 10/09/16 10:53 IMPRESSION: Persistent moderate gaseous distention of small bowel loops throughout the abdomen. D/ / Hattie Duenas Cha, MD / Hattie Duenas Cha, MD Interpreting Provider: Hattie Duenas Cha, MD Consult Discharge Plan - Plan Referrals: Esther Elam MD [Primary Care Provider] - 10/25/16 10:45 am
--- NOTE | 2016-10-10 15:00 | General Surgery Progress Note ---
<Maggie Stroud Ronak - Last Filed: 10/10/16 15:00> Date of Encounter: 10/10/16 Time of Encounter: 14:30 - Assessment and Plan (1) Partial small bowel obstruction Current Visit: Yes Status: Acute Continue conservative therapy: Bowel rest with NG tube to LIWS Serial abdominal exams Supportive care IV fluids SBFT today with gastrograffin No indication for urgent surgical intervention at this time Will continue to follow (2) Gastroparesis Current Visit: Yes Status: Chronic chronic for the past 25 years Management per medicine service/specialist (3) Diabetes mellitus Current Visit: Yes Status: Chronic Improved today Management per medicine service Qualifiers: Diabetes mellitus type: type 2 Diabetes mellitus complication status: with hyperglycemia Diabetes mellitus store assistant insulin use: with store assistant use Qualified Code(s): E11.65 - Type 2 diabetes mellitus with hyperglycemia; Z79.4 - correction (current) use of insulin (4) Hypertension Current Visit: Yes Status: Acute Management per medicine service Qualifiers: Hypertension type: essential hypertension Qualified Code(s): I10 - Essential (primary) hypertension Subjective Patient reports: feels better, still having pain, pain is less, voiding w/o difficulty, flatus, no bowel movement, afebrile, other (mildly bloated) Objective Vital Signs - Last 8 Hours Temp Pulse Resp BP Pulse Ox 10/10/16 12:33 83 10/10/16 11:33 97.6 F 84 16 150/92 98 10/10/16 08:45 80 98 10/10/16 07:29 97.9 F 82 16 129/81 96 Intake and Output 10/09/16 10/10/16 10/10/16 23:59 07:59 15:59 Intake Total 3300 / 3300 100 / 100 Output Total 1350 / 1350 1150 / 1150 150 / 150 Balance 1950 / 1950 -1150 / -1150 -50 / -50 Intake: IV Fluids 3300 / 3300 100 / 100 0.9 % Sodium Chloride 1, 3000 / 3000 000 ML @ 200 mls/hr IVC . Q5H [facility] Rx#:[id number] Potassium Chloride 10 mEq 300 / 300 100 / 100 /100mL 10 meq In 100 ml @ 100 mls/hr IVPB Q1H [facility] Rx#:[id number] Oral 0 / 0 Output: Urine 350 / 350 150 / 150 Gastric Drainage 1000 / 1000 1000 / 1000 150 / 150 Other: Meal Lunch Percent of Meal Consumed 0% Weight 90.9 kg Blood Glucose* 138 126 134 Patient Weight 10/10/16 23:59 Weight 90.9 kg - General physical appearance well developed, well nourished, no distress - Eyes normal ocular movement - ENT normal mucosa, atraumatic, normocephalic - Neck Neck exam: trachea midline - Respiratory normal respiratory effort, clear to auscultation - Cardiovascular Cardiovascular exam: Present: RRR - Abdomen Abdomen: Present: bowel sounds present, soft, distended (mildly), tender ( minimal), wound (NG tube to LIWS (1150ml of clear, bilious drainage)) - Neurologic CN 2-12 grossly intact - Musculoskeletal normal gait, normal posture - Psychiatric oriented to time, oriented to person, oriented to place, speech is normal, memory intact - Labs 10/10/16 05:08 10/10/16 05:08 Diabetes panel 10/10/16 Range/Units 05:08 Sodium 139 (136-145) mEq/L Potassium 3.4 L (3.5-4.5) mEq/L Chloride 107 (98-109) mEq/L Carbon Dioxide 23 (19-29) mEq/L BUN 14 (8-26) mg/dL Creatinine 0.63 L (0.72-1.25) mg/dL Glucose 153 H (70-99) mg/dL Calcium 8.2 L (8.6-10.8) mg/dL Calcium panel 10/10/16 Range/Units 05:08 Calcium 8.2 L (8.6-10.8) mg/dL Pituitary panel 10/10/16 Range/Units 05:08 Sodium 139 (136-145) mEq/L Potassium 3.4 L (3.5-4.5) mEq/L Chloride 107 (98-109) mEq/L Carbon Dioxide 23 (19-29) mEq/L BUN 14 (8-26) mg/dL Creatinine 0.63 L (0.72-1.25) mg/dL Glucose 153 H (70-99) mg/dL Calcium 8.2 L (8.6-10.8) mg/dL Adrenal panel 10/10/16 Range/Units 05:08 Sodium 139 (136-145) mEq/L Potassium 3.4 L (3.5-4.5) mEq/L Chloride 107 (98-109) mEq/L Carbon Dioxide 23 (19-29) mEq/L BUN 14 (8-26) mg/dL Creatinine 0.63 L (0.72-1.25) mg/dL Glucose 153 H (70-99) mg/dL Calcium 8.2 L (8.6-10.8) mg/dL Consult Discharge Plan - Plan Referrals: Esther Elam MD [Primary Care Provider] - 10/25/16 10:45 am - Attending Attestation I examined this patient and my medical decision-making was reviewed with the BUILDING MAINTENANCE SUPERINTENDENT/PA/Advanced Practice Nurse/Resident Physician. I agree with the documented findings, disposition and treatment plan as described except to the extent set forth below. <Sonam Paris - Last Filed: 10/10/16 17:01> Date of Encounter: 10/10/16 - Assessment and Plan (1) Abdominal pain Current Visit: Yes Status: Acute prn pain medication Qualifiers: Abdominal location: generalized Qualified Code(s): R10.84 - Generalized abdominal pain (2) Partial small bowel obstruction Current Visit: Yes Status: Acute Subjective Patient reports: feels better, still having pain, flatus, no bowel movement Narrative: feels distended and more uncomfortable since starting sbft Objective Vital Signs - Last 8 Hours Temp Pulse Resp BP Pulse Ox 10/10/16 16:25 98.0 F 86 16 143/85 97 10/10/16 12:33 83 10/10/16 11:33 97.6 F 84 16 150/92 98 Intake and Output 10/10/16 10/10/16 10/10/16 07:59 15:59 23:59 Intake Total 100 / 100 Output Total 1150 / 1150 450 / 450 Balance -1150 / -1150 -350 / -350 Intake: IV Fluids 100 / 100 Potassium Chloride 10 mEq 100 / 100 /100mL 10 meq In 100 ml @ 100 mls/hr IVPB Q1H [facility] Rx#:[id number] Oral 0 / 0 Output: Urine 150 / 150 300 / 300 Gastric Drainage 1000 / 1000 150 / 150 Other: Meal Lunch Percent of Meal Consumed 0% Weight 90.9 kg Blood Glucose* 126 134 Patient Weight 10/10/16 23:59 Weight 90.9 kg - General physical appearance well nourished, moderate pain - Eyes PERRL, normal ocular movement - ENT normal mucosa, atraumatic, normocephalic - Neck Neck exam: trachea midline - Respiratory clear to auscultation - Cardiovascular Cardiovascular exam: Present: RRR - Abdomen Abdomen: Present: bowel sounds present, soft, distended, tender Abdominal Tenderness: diffusely - Neurologic CN 2-12 grossly intact - Musculoskeletal normal posture - Psychiatric oriented to time, oriented to person, oriented to place, memory intact - Labs 10/10/16 05:08 10/10/16 05:08 Diabetes panel 10/10/16 Range/Units 05:08 Sodium 139 (136-145) mEq/L Potassium 3.4 L (3.5-4.5) mEq/L Chloride 107 (98-109) mEq/L Carbon Dioxide 23 (19-29) mEq/L BUN 14 (8-26) mg/dL Creatinine 0.63 L (0.72-1.25) mg/dL Glucose 153 H (70-99) mg/dL Calcium 8.2 L (8.6-10.8) mg/dL Calcium panel 10/10/16 Range/Units 05:08 Calcium 8.2 L (8.6-10.8) mg/dL Pituitary panel 10/10/16 Range/Units 05:08 Sodium 139 (136-145) mEq/L Potassium 3.4 L (3.5-4.5) mEq/L Chloride 107 (98-109) mEq/L Carbon Dioxide 23 (19-29) mEq/L BUN 14 (8-26) mg/dL Creatinine 0.63 L (0.72-1.25) mg/dL Glucose 153 H (70-99) mg/dL Calcium 8.2 L (8.6-10.8) mg/dL Adrenal panel 10/10/16 Range/Units 05:08 Sodium 139 (136-145) mEq/L Potassium 3.4 L (3.5-4.5) mEq/L Chloride 107 (98-109) mEq/L Carbon Dioxide 23 (19-29) mEq/L BUN 14 (8-26) mg/dL Creatinine 0.63 L (0.72-1.25) mg/dL Glucose 153 H (70-99) mg/dL Calcium 8.2 L (8.6-10.8) mg/dL - Imaging Abdominal x-ray: report reviewed, image reviewed CT scan - abdomen: report reviewed, image reviewed CT scan - pelvis: report reviewed, image reviewed
[2016-10-11] MEDS: Insulin LISPRO 300 UNITS/3 ML VIAL SQ SCH ×4 (02:33→16:47)
[2016-10-11] MEDS: *HR* HYDROmorphone 2 MG/ML SYRINGE IVP PRN ×5 (02:38→23:52)
[2016-10-11] MEDS: Metoclopramide 10 MG/2 ML VIAL IVP SCH ×3 (05:56→16:46)
[2016-10-11] MEDS: *HR* Metoprolol 5 MG/5 ML VIAL IVP SCH ×3 (05:56→16:46)
[2016-10-11] MEDS: *HR* Heparin 5,000 UNIT/ML VIAL SQ SCH ×2 (05:56→16:46)
[2016-10-11] MEDS: *HR* HYDROmorphone (PF) 1 MG/ML SYRINGE IVP SCH (05:57)
[2016-10-11] MEDS: Pantoprazole 40 MG VIAL IVP SCH (09:09)
[2016-10-11] MEDS: Insulin DETEMIR 100 UNIT/ML X5UNITS SQ SCH (09:10)
[2016-10-11] MEDS: Nicotine 21 MG PATCH.TD24 TD SCH (11:06)
[2016-10-11 11:30] LABS: BUN/Creatinine Ratio 17 (6-26); Blood Urea Nitrogen 11 mg/dL (8-26); Calcium 8.9 mg/dL (8.6-10.8); Carbon Dioxide 22 mEq/L (19-29); Chloride 105 mEq/L (98-109); Glucose 121 mg/dL (70-99); Osmolality,Calculated 289 (280-300); Potassium 3.1 mEq/L (3.5-4.5); Sodium 139 mEq/L (136-145); eGFR For African Americans > 60 (> 60); eGFR For Non-African Americans > 60 (> 60)
--- NOTE | 2016-10-11 14:04 | General Surgery Progress Note ---
<Banner,Maggie Ronak - Last Filed: 10/11/16 14:01> Date of Encounter: 10/11/16 Time of Encounter: 11:30 - Assessment and Plan (1) Partial small bowel obstruction Current Visit: Yes Status: Acute Continue conservative therapy: SBFT shows evidence of low grade PSBO with movement of contrast into the colon ( patient has had 3 bowel movements and is passing flatus regularly) D/C NG tube Advance to clear liquid diet with diabetic modifications Supportive care IV fluids No indication for urgent surgical intervention at this time Will continue to follow and advance diet as tolerated (2) Gastroparesis Current Visit: Yes Status: Chronic chronic for the past 25 years Management per medicine service/specialist (3) Diabetes mellitus Current Visit: Yes Status: Chronic Controlled Management per medicine service Qualifiers: Diabetes mellitus type: type 2 Diabetes mellitus complication status: with hyperglycemia Diabetes mellitus buttermaker helper insulin use: with buttermaker helper use Qualified Code(s): E11.65 - Type 2 diabetes mellitus with hyperglycemia; Z79.4 - FDC (current) use of insulin (4) Hypertension Current Visit: Yes Status: Acute Normotensive Management per medicine service Qualifiers: Hypertension type: essential hypertension Qualified Code(s): I10 - Essential (primary) hypertension Subjective Patient reports: feels better, still having pain, pain is less, voiding w/o difficulty, flatus, bowel movement (X3), afebrile Objective Vital Signs - Last 8 Hours Temp Pulse Resp BP Pulse Ox 10/11/16 10:15 98.1 F 84 16 124/84 94 L 10/11/16 06:36 98.5 F 90 16 123/72 94 L Intake and Output 10/10/16 10/11/16 10/11/16 23:59 07:59 15:59 Intake Total 1250 / 1250 Output Total 1350 / 1350 1400 / 1400 400 / 400 Balance -100 / -100 -1400 / -1400 -400 / -400 Intake: IV Fluids 1250 / 1250 KCl 10 MEQ In 0.9 % 950 / 950 Sodium Chloride 1,000 ML @ 100 mls/hr IVC .Q10H3M [facility] Rx#:[id number] Potassium Chloride 10 mEq 200 / 200 /100mL 10 meq In 100 ml @ 100 mls/hr IVPB Q1H [facility] Rx#:[id number] Oral 0 / 0 Output: Urine 200 / 200 150 / 150 0 / 0 Gastric Drainage 1150 / 1150 1250 / 1250 400 / 400 Other: Meal Dinner Percent of Meal Consumed 0% Stool Size Moderate Stool Consistency liquid Stool Color Brown # Bowel Movements 1 Weight 91.2 kg Blood Glucose* 101 106 - General physical appearance well developed, well nourished, no distress - Eyes normal ocular movement - ENT normal mucosa, atraumatic, normocephalic - Neck Neck exam: trachea midline - Respiratory normal expansion, normal respiratory effort, clear to auscultation - Cardiovascular Cardiovascular exam: Present: RRR - Abdomen Abdomen: Present: bowel sounds present, soft, tender (mildly) - Neurologic CN 2-12 grossly intact - Musculoskeletal normal gait, normal posture - Psychiatric oriented to time, oriented to person, oriented to place, speech is normal, memory intact - Labs 10/10/16 05:08 10/11/16 10:46 Diabetes panel 10/11/16 Range/Units 10:46 Sodium 139 (136-145) mEq/L Potassium 3.1 L (3.5-4.5) mEq/L Chloride 105 (98-109) mEq/L Carbon Dioxide 22 (19-29) mEq/L BUN 11 (8-26) mg/dL Creatinine 0.63 L (0.72-1.25) mg/dL Glucose 121 H (70-99) mg/dL Calcium 8.9 (8.6-10.8) mg/dL Calcium panel 10/11/16 Range/Units 10:46 Calcium 8.9 (8.6-10.8) mg/dL Pituitary panel 10/11/16 Range/Units 10:46 Sodium 139 (136-145) mEq/L Potassium 3.1 L (3.5-4.5) mEq/L Chloride 105 (98-109) mEq/L Carbon Dioxide 22 (19-29) mEq/L BUN 11 (8-26) mg/dL Creatinine 0.63 L (0.72-1.25) mg/dL Glucose 121 H (70-99) mg/dL Calcium 8.9 (8.6-10.8) mg/dL Adrenal panel 10/11/16 Range/Units 10:46 Sodium 139 (136-145) mEq/L Potassium 3.1 L (3.5-4.5) mEq/L Chloride 105 (98-109) mEq/L Carbon Dioxide 22 (19-29) mEq/L BUN 11 (8-26) mg/dL Creatinine 0.63 L (0.72-1.25) mg/dL Glucose 121 H (70-99) mg/dL Calcium 8.9 (8.6-10.8) mg/dL Consult Discharge Plan - Plan Referrals: Esther Elam MD [Primary Care Provider] - 10/25/16 10:45 am - Attending Attestation I examined this patient and my medical decision-making was reviewed with the TREER/PA/Advanced Practice Nurse/Resident Physician. I agree with the documented findings, disposition and treatment plan as described except to the extent set forth below. <VitorSonam odonnell Patricio - Last Filed: 10/11/16 18:16> Date of Encounter: 10/11/16 - Assessment and Plan (1) Abdominal pain Current Visit: Yes Status: Acute improved but blister packing machine tender with palpation, monitor Qualifiers: Abdominal location: generalized Qualified Code(s): R10.84 - Generalized abdominal pain (2) Partial small bowel obstruction Current Visit: Yes Status: Acute Subjective Patient reports: feels better, still having pain, pain is less, voiding w/o difficulty, flatus, bowel movement Objective Vital Signs - Last 8 Hours Temp Pulse Resp BP Pulse Ox 10/11/16 14:47 97.9 F 86 16 127/80 94 L Intake and Output 10/11/16 10/11/16 10/11/16 07:59 15:59 23:59 Intake Total 0 / 0 Output Total 1400 / 1400 600 / 600 Balance -1400 / -1400 -600 / -600 Intake: Oral 0 / 0 Output: Urine 150 / 150 200 / 200 Gastric Drainage 1250 / 1250 400 / 400 Other: Blood Glucose* 106 216 - General physical appearance well developed, well nourished, no distress - Eyes PERRL, normal ocular movement - ENT normal mucosa, atraumatic, normocephalic - Neck Neck exam: trachea midline - Respiratory normal expansion, clear to auscultation - Cardiovascular Cardiovascular exam: Present: RRR - Abdomen Abdomen: Present: bowel sounds present, soft, tender - Integumentary no growths, no abnormal pigmentation - Neurologic CN 2-12 grossly intact - Musculoskeletal normal gait, normal posture - Psychiatric oriented to time, oriented to person, memory intact - Labs 10/10/16 05:08 10/11/16 10:46 Diabetes panel 10/11/16 Range/Units 10:46 Sodium 139 (136-145) mEq/L Potassium 3.1 L (3.5-4.5) mEq/L Chloride 105 (98-109) mEq/L Carbon Dioxide 22 (19-29) mEq/L BUN 11 (8-26) mg/dL Creatinine 0.63 L (0.72-1.25) mg/dL Glucose 121 H (70-99) mg/dL Calcium 8.9 (8.6-10.8) mg/dL Calcium panel 10/11/16 Range/Units 10:46 Calcium 8.9 (8.6-10.8) mg/dL Pituitary panel 10/11/16 Range/Units 10:46 Sodium 139 (136-145) mEq/L Potassium 3.1 L (3.5-4.5) mEq/L Chloride 105 (98-109) mEq/L Carbon Dioxide 22 (19-29) mEq/L BUN 11 (8-26) mg/dL Creatinine 0.63 L (0.72-1.25) mg/dL Glucose 121 H (70-99) mg/dL Calcium 8.9 (8.6-10.8) mg/dL Adrenal panel 10/11/16 Range/Units 10:46 Sodium 139 (136-145) mEq/L Potassium 3.1 L (3.5-4.5) mEq/L Chloride 105 (98-109) mEq/L Carbon Dioxide 22 (19-29) mEq/L BUN 11 (8-26) mg/dL Creatinine 0.63 L (0.72-1.25) mg/dL Glucose 121 H (70-99) mg/dL Calcium 8.9 (8.6-10.8) mg/dL
--- NOTE | 2016-10-11 17:41 | Internal Med Progress Note ---
Date of Encounter: 10/11/16 Time of Encounter: 17:38 - Assessment and plan (1) SBO (small bowel obstruction) Current Visit: Yes Status: Acute Assessment and plan: NG tube removed Clear liquids started today, may try regular diet/diabetic diet tomorrow Followed by surgery (2) Ketosis Current Visit: Yes Status: Acute Assessment and plan: possible mild acute DKA, resolved (3) Intractable vomiting with nausea Current Visit: Yes Status: Acute Assessment and plan: resolved Qualifiers: Vomiting type: unspecified Qualified Code(s): R11.2 - Nausea with vomiting , unspecified (4) Hypertension Current Visit: Yes Status: Acute Qualifiers: Hypertension type: essential hypertension Qualified Code(s): I10 - Essential (primary) hypertension (5) Tobacco abuse Current Visit: Yes Status: Acute Assessment and plan: Nicotine patch (6) Dehydration Current Visit: Yes Status: Acute Assessment and plan: Continue IV fluids (7) Hyperglycemia due to type 2 diabetes mellitus Current Visit: Yes Status: Acute Assessment and plan: Insulin sliding scale Qualifiers: Diabetes mellitus skilled nursing insulin use: without buttermilk drier operator use Qualified Code(s): E11.65 - Type 2 diabetes mellitus with hyperglycemia (8) Hypokalemia Current Visit: Yes Status: Acute Assessment and plan: replete as needed (9) Gastroparesis Current Visit: Yes Status: Chronic Assessment and plan: start erythromycin before meals - Time Spent With Patient Greater than 35 minutes - Subjective Interval history: still complaining of some mild abdominal distention and pain, NG tube was removed NG tube. Denies any nausea, he is finally passing gas. no dysuria, no chest pain or shortn - Constitutional Vitals: Temp Pulse Resp BP Pulse Ox 97.9 F 86 16 127/80 94 L 10/11/16 14:47 10/11/16 14:47 10/11/16 14:47 10/11/16 14:47 10/11/16 14:47 General appearance: Present: A&O X 3 - Head Head exam: Present: atraumatic, normocephalic - Eye Eye exam: Present: PERRL, conjuntiva pink, sclera anicteric Pupils: Present: PERRL - Neck Neck exam general surgery: Present: supple, trachea midline. Absent: lymphadenopathy - Respiratory Respiratory exam: Present: CTAB. Absent: accessory muscle use, rales, rhonchi, wheezes - Cardiovascular Cardiovascular exam: Present: RRR, +S1, +S2. Absent: diastolic murmur, gallop, rubs, systolic murmur - GI/Abdominal GI/Abdominal exam: Present: distended, hyperactive bowel sounds, normal bowel sounds, soft, no peritoneal signs. Absent: tenderness - Extremities Exam Extremities exam: Present: warm, radial pulses palpable and symetrical. Absent : calf tenderness, cyanotic, pedal edema - Neurological Exam Neurological exam: Present: CN II-XII intact, oriented X3, no focal deficits. Absent: pronater drift, facial droop, speech deficit - Skin Skin exam: Present: dry, intact Internal Medicine: Result - Labs CBC & Chem 7: 10/10/16 05:08 10/11/16 10:46 Labs: BMP 10/11/16 10:46 Sodium 139 Potassium 3.1 L Chloride 105 Carbon Dioxide 22 BUN 11 Creatinine 0.63 L Glucose 121 H Calcium 8.9 - VTE Documentation of Mechanical Device: Intermittent pneumatic compression device Consult Discharge Plan - Plan Referrals: Esther Elam MD [Primary Care Provider] - 10/25/16 10:45 am
[2016-10-11] MEDS: Metoprolol XL (24 HR) Succ 25 MG TAB.ER.24H PO SCH (18:44)
[2016-10-11] MEDS: METFORMIN HCL 750 MG PO SCH (20:38)
[2016-10-12] MEDS: *HR* Heparin 5,000 UNIT/ML VIAL SQ SCH (05:12)
[2016-10-12] MEDS: *HR* HYDROmorphone 2 MG/ML SYRINGE IVP PRN (05:12)
[2016-10-12 05:40] LABS: BUN/Creatinine Ratio 12 (6-26); Blood Urea Nitrogen 8 mg/dL (8-26); Calcium 8.7 mg/dL (8.6-10.8); Carbon Dioxide 23 mEq/L (19-29); Chloride 107 mEq/L (98-109); Glucose 270 mg/dL (70-99); Osmolality,Calculated 292 (280-300); Potassium 3.8 mEq/L (3.5-4.5); Sodium 137 mEq/L (136-145); eGFR For African Americans > 60 (> 60); eGFR For Non-African Americans > 60 (> 60)
[2016-10-12 06:43] VITALS: BP 148/84
[2016-10-12] MEDS ORDERED: Insulin LISPRO 300 UNITS/3 ML VIAL SQ SCH ×2 (07:30→21:00)
--- NOTE | 2016-10-12 07:46 | Discharge Summary ---
Date of Encounter: 10/12/16 Time of Encounter: 07:40 - Discharge Diagnosis (1) SBO (small bowel obstruction) Priority: Primary Status: Acute Comments: partial small bowel obstruction (2) Ketosis Priority: Primary Status: Acute Comments: possible mild acute DKA, resolved (3) Intractable vomiting with nausea Priority: Primary Status: Acute Qualifiers: Vomiting type: unspecified Qualified Code(s): R11.2 - Nausea with vomiting , unspecified (4) Hypertension Priority: Secondary Status: Acute Qualifiers: Hypertension type: essential hypertension Qualified Code(s): I10 - Essential (primary) hypertension (5) Tobacco abuse Priority: Secondary Status: Acute Comments: smoking cessation counseling given for 5 minutes (6) Dehydration Priority: Secondary Status: Acute (7) Hyperglycemia due to type 2 diabetes mellitus Priority: Secondary Status: Acute Qualifiers: Diabetes mellitus fpc insulin use: without extermination supervisor use Qualified Code(s): E11.65 - Type 2 diabetes mellitus with hyperglycemia (8) Hypokalemia Priority: Secondary Status: Acute (9) Gastroparesis Priority: Secondary Status: Chronic - Discharge Medications Prescriptions: Ketorolac [Toradol] 10 mg PO Q6HR PRN #20 tablet PRN Reason: Pain Erythromycin [Kadeem-Tab] 125 mg PO TID 30 Days Esomeprazole Magnesium [Nexium] 40 mg PO DAILY 30 Days Metformin HCl [Glucophage Xr] 500 mg PO BID 30 Days Home Medications: Dronabinol [Marinol] 2.5 mg PO AD PRN 12/25/15 [History] Metoprolol XL (24 HR) Succ [Toprol Xl] 100 mg PO DAILY 12/25/15 [History] Atorvastatin [Lipitor] 40 mg PO HS 10/09/16 [History] Cholestyramine 4 gm PO BIDAC 10/09/16 [History] Fenofibrate [Lofibra] 160 mg PO DAILY 10/09/16 [History] Insulin Glargine,Hum.rec.anlog [Lantus Solostar] 45 unit SQ DAILY 10/09/16 [ History] Sildenafil Citrate [Viagra] 100 mg PO DAILY PRN 10/09/16 [History] Tizanidine HCl [Zanaflex] 2 mg PO TID PRN 10/09/16 [History] Erythromycin [Kadeem-Tab] 125 mg PO TID 30 Days 10/12/16 [Rx] Esomeprazole Magnesium [Nexium] 40 mg PO DAILY 30 Days 10/12/16 [Rx] Ketorolac [Toradol] 10 mg PO Q6HR PRN #20 tablet 10/12/16 [Rx] Metformin HCl [Glucophage Xr] 500 mg PO BID 30 Days 10/12/16 [Rx] Allergies/Adverse Reactions: Allergies No Known Allergies Allergy (Verified 10/08/16 22:31) Date of admission: 10/09/16 03:56 Primary care physician: Esther Elam Consults: 10/09/16 10:53 Consult to Surgery [CONS] Routine Consulting Provider: [facility] Reason for Consult: Small bowel obstruction Call Completed: Yes - Patient Status Disposition: Home, Self-Care Condition: Good Overall status at discharge: patient is back to baseline - Discharge Instructions Follow Up With: Esther Elam MD [Primary Care Provider] - 10/25/16 10:45 am Additional Instructions: FOllow with Primary care physician within the next 7 days. Continue erythromycin 125 mg before meals, can increase to 250 mg if no improvement. Toradol for pain, continue Nexium. Avoid narcotics. - Diet and Activity Activity: increase activity as tolerated Diet: diabetic diet Hospital course: Mr. Cabrera is a 51 year old male with a past medical history of diabetes type 2 insulin-dependent, gastroparesis, came to the emergency room complaining of 4 days of nausea and vomiting, he vomited 4 times in the past 24 hoursprior to admission, was not able to keep anything down. He was very dehydrated and was not taking his medications. CT scan of the abdomen showed small bowel obstruction with a transition point in the right mid abdomen. His creatinine increased from 0.78 up to 0.95. Hemoglobin was 18.4 and hematocrit 50.4, glucose 394 sodium 132 with an anion gap of 14, beta-hydroxybutyric acid was 0.92. Heart rate is 104 blood pressure 142/102. the patient was admitted to the hospital, surgery consult was called,NG tube was placed. The patient was treated with subcutaneous insulin, his anion gap closed. On 10/11 the NG tube was removed and the patient has been tolerating his diet fine since that day. Erythomycin wwas started as the patient has tried reglan before without much improvement on his gastroparesis symptoms. He is stable to be discharged, he was hypokalemic but his K was repleted. Time spent discussing smoking cessation with patient: 3 to 10 minutes - Time Spent with Patient Total time spent providing and/or coordinating discharge services: Greater than 30 minutes - Constitutional Vitals: Temp Pulse Resp BP Pulse Ox 97.6 F 68 14 148/84 99 10/12/16 06:42 10/12/16 06:42 10/12/16 06:42 10/12/16 06:42 10/12/16 06:42 General appearance: Present: A&O X 3 - Head Head exam: Present: atraumatic, normocephalic - Eye Eye exam: Present: PERRL, conjuntiva pink, sclera anicteric Pupils: Present: PERRL - Neck Neck exam general surgery: Present: supple, trachea midline. Absent: lymphadenopathy - Respiratory Respiratory exam: Present: CTAB. Absent: accessory muscle use, rales, rhonchi, wheezes - Cardiovascular Cardiovascular exam: Present: RRR, +S1, +S2. Absent: diastolic murmur, gallop, rubs, systolic murmur - GI/Abdominal GI/Abdominal exam: Present: distended, normal bowel sounds, soft, no peritoneal signs. Absent: tenderness - Extremities Exam Extremities exam: Present: warm, radial pulses palpable and symetrical. Absent : calf tenderness, cyanotic, pedal edema - Neurological Exam Neurological exam: Present: CN II-XII intact, oriented X3, no focal deficits. Absent: pronater drift, facial droop, speech deficit - Skin Skin exam: Present: dry, intact - VTE Documentation of Mechanical Device: Intermittent pneumatic compression device
[2016-10-12] MEDS ORDERED: Insulin DETEMIR 100 UNIT/ML X5UNITS SQ SCH (09:00)
[2016-10-12] MEDS: Pantoprazole 40 MG VIAL IVP SCH (09:25)
[2016-10-12] MEDS: Metoprolol XL (24 HR) Succ 25 MG TAB.ER.24H PO SCH (09:27)
[2016-10-12] MEDS: Nicotine 21 MG PATCH.TD24 TD SCH (09:28)
[2016-10-12] MEDS: METFORMIN HCL 750 MG PO SCH (09:28)
== END 2016-10-12 11:00 | disposition home or self-care (01) | DRG 388 ==
LOC: EMEROO 22:21 → 2NNU 10-09 03:56 → SUATTDRO 10-09 03:56 → 2NNU 10-09 05:17 → 3ANU 10-10 19:22
PROVIDERS: ADMIT Internal Medicine; ATTEND Internal Medicine

== ENCOUNTER 2018-07-25 20:02 | Inpatient (IN) ==
[2018-07-25] MEDS: Ondansetron 4 MG/2 ML VIAL IVP PRN (22:47)
[2018-07-25] MEDS ORDERED: Naloxone 0.4 MG/ML INJ IVP PRN (23:16)
[2018-07-25] MEDS ORDERED: OXYCODONE Oral CONC 10 MG/0.5 ML ORAL.SYG SL PRN (23:16)
--- NOTE | 2018-07-25 23:28 | Internal Med History&Physical ---
Addendum entered and electronically signed by Armen Schulz MD 07/26/18 20:42: I saw and evaluated the patient. I reviewed the residents note, performed my own physical examination and agree with findings and plan as documented in the residents note. Patient seen and examined on 07/26/18. Patient presents with small bowel obstruction, large kidney stone conglomeration. Agree with urology and surgery consultation. NG tube seems to be helping with patient's nausea, states that he has been able to sleep. Continue to monitor. Original Note: Date of Encounter: 07/25/18 Time of Encounter: 23:14 Internal Medicine - H&P: HPI Chief complaint: Intractable nausea and vomiting Admitted From: Emergency Dept Plans for Post Hospital Care: Home History of present illness: Mr. Cabrera is a 53 year old male with history of diabetes, hyperlipidemia, hypertension, TIA, cyclic vomiting syndrome, gastroparesis, small bowel obstruction who presents to [facility] ED with nausea, vomiting, diarrhea for approximately 4-5 days duration. The patient states that he does have a significant history of intractable nausea and vomiting due to a long history of gastroparesis and cyclic vomiting syndrome for which she is seen numerous specialists in [facility] and at the [facility], however he is usually able to manage this at home with either oral or rectal Phenergan. He says approximately 5 days ago he began to experience nausea and vomiting which started insidiously and was accompanied by abdominal pain both in the epigastric and lower abdominal area. The pain is not similar to what he has experienced before, and he says that it is almost similar to a bowling ball sitting in his lower abdomen. He describes this pain as 9 out of 10, nonradiating, cramping pain. Nothing seemed to make the pain any better or worse. He says that over the course of the past week he slowly become less able to tolerate any food or water, resulting in worsening dehydration and fatigue. He says that every time he attempts to drink any sort of fluid a results in both vomiting and severe diarrhea approximately 30 minutes later. The diarrhea is described as watery or loose, however there are also intermittent moments of hard stools as well. He denies any fever, chills, sweats. He also denies any urinary symptoms. He does have back pain, however this is chronic in nature and he denies any unilateral to this. He does not feel that this back pain is new or changed in recent days. He denies any changes in urinary habits, urinary symptoms or blood in his urine. Significantly, the patient does have some history of abdominal surgeries in the past. He has had his gallbladder out by a surgeon in [place]. Additionally, the patient was having Botox injections in his abdomen by a physician in [facility], however had to stop due to nonpayment by his insurance. He states that he has had problems with small bowel obstructions in the past, most recently about a year ago where he was seen by a surgeon at this hospital who told him that she did not advise surgery at that time due to risk of further scarring in his abdomen. In the emergency room at the [place] [facility], the patient received a set of labs which demonstrated relatively normal chemistries despite hyperglycemia with a blood glucose of 216. His cbc did suggest hemoconcentration with a WBC of 14.8 and hemoglobin of 19.4, and his UA was significant for blood as well as bilirubin and hyaline casts. The patient underwent CT scan which showed nonobstructing 10 mm right renal calculi in the UPJ without evidence of hydronephrosis, and also findings suggestive of a distal small bowel obstruction. At that time due to concern for severe dehydration the patient did receive 2 L of IV fluids as well as Haldol for nausea and was transferred to [facility] for further workup and management of these conditions. Past Med Surg Social Fam HX - Past Medical History Medical history: diabetes, hyperlipidemia, hypertension, TIA, other Additional medical history: gastroparesis Psychiatric history: anxiety, depression - Past Surgical History Surgical History: cholecystectomy, orthopedic, other, sinus surgery, other Additional surgical history: r knee surgery - Social History Smoking Status: Current every day smoker Packs per day: 1 Smokeless Tobacco Status: No Alcohol use: none Drug use: none - Family History Father Living Status: Hx Family Cancer: Yes Hx Family Endocrine Disorder: Yes Internal Medicine - H&P: Meds RX: Dronabinol [Marinol] 2.5 mg PO AD PRN 12/25/15 [History] RX: Metoprolol XL (24 HR) Succ [Toprol Xl] 100 mg PO DAILY 12/25/15 [History] RX: Atorvastatin [Lipitor] 40 mg PO HS 10/09/16 [History] RX: Cholestyramine 4 gm PO BIDAC 10/09/16 [History] RX: Fenofibrate [Lofibra] 160 mg PO DAILY 10/09/16 [History] RX: Insulin Glargine,Hum.rec.anlog [Lantus Solostar] 45 unit SQ DAILY 10/09/16 [History] RX: Sildenafil Citrate [Viagra] 100 mg PO DAILY PRN 10/09/16 [History] RX: Tizanidine HCl [Zanaflex] 2 mg PO TID PRN 10/09/16 [History] RX: Esomeprazole Magnesium [Nexium] 40 mg PO DAILY 30 Days capsule. 10/12/16 [Rx] Allergy/AdvReac Type Severity Reaction Status Date / Time No Known Allergies Allergy Verified 07/25/18 18:10 Review of systems: Constitutional: Denies fevers, chills, weight loss, generalized fatigue Head/Neck: Denies DARBY, neck stiffness EENT: Denies vision changes/blurriness, rhinorrhea, congestion, sore throat CVS: Denies chest pain, palpitations, MARKS, orthopnea, edema, PND Pulm: Denies SOB, cough, sputum, hemoptysis, wheezing GI: Admits to abdominal pain, nausea, vomiting, diarrhea. Denies hematochezia, denies hematemesis. : Denies dysuria, increased frequency, urgency, hematuria Heme: Denies ease of bleeding or bruising MSK: Denies joint pain, limited ROM Skin: Denies rashes, ulcers, color changes Neuro: Denies DARBY, paresthesias, focal deficits, ataxia - Constitutional Vitals: Temp Pulse Resp BP Pulse Ox 98.2 F 119 14 140/86 96 07/25/18 22:09 07/25/18 22:09 07/25/18 22:09 07/25/18 22:09 07/25/18 22:09 Exam: Gen: Vitals noted. No acute distress. Eyes: anicteric sclerae, moist conjunctivae; no lid-lag; Pupils equal and reactive to light HENT: Atraumatic; oropharynx clear with mucous membranes mildly dry and no mucosal ulcerations; normal hard and soft palate. NG tube in place. Neck: Trachea midline; supple, no thyromegaly or lymphadenopathy Cardiac: RRR, no murmur, +S1/S2 Pulmonary: CTA bilaterally, no wheezes, rales or rhonchi, equal chest expansion Abdomen: soft, generally tender to palpation but most tender in epigastric and suprapubic region with noted tenderness to palpation in right lower quadrant. No rebound tenderness or peritoneal signs in general. No masses or hepatosplenomegaly MSK: ROM intact, no joint swelling noted Extremities: no BLE edema, nontender calf, no cyanosis or clubbing Skin: Normal temperature, turgor and texture; no rash, ulcers or subcutaneous nodules Neuro: moves all extremities, no focal deficits. Psych: Appropriate mood and behavior. A&Ox3 - Assessment and plan (1) Intractable vomiting with nausea Current Visit: Yes Status: Acute Assessment and plan: Intractable nausea and vomiting, secondary to gastroparesis and small bowel obstruction Patient failed outpatient therapy with by mouth and rectal Phenergan, symptoms lasted 5-6 Presents with severe dehydration and volume depletion, abdominal pain and suspicious for SBO Did resolve with IV Haldol, also has received IV Zofran at this time Plan Aggressive IV volume resuscitation IV anti-emetics prn NG to suction intermittent Nothing by mouth diet Qualifiers: Vomiting type: cyclical vomiting Qualified Code(s): G43.A1 - Cyclical vomiting, intractable (2) SBO (small bowel obstruction) Current Visit: Yes Status: Acute Assessment and plan: Suspected small bowel obstruction Patient has history of gastroparesis and SBO in the past, seen by Dr. Paris Etiology likely secondary to adhesions in setting of prior cholecystectomy CT abdomen and pelvis remarkable for distal small bowel obstruction without evidence of pneumatosis or perforation Abdominal exam is significant for severe abdominal pain however no distention or peritoneal signs The patient does not appear to have an acute abdomen at this time, no evidence of infection or need for acute intervention We will keep the patient nothing by mouth, manage pain with sublingual medication Manage nausea with IV medication as needed Aggressive volume resuscitation with lactated Ringer's Consult to [facility] in the morning (3) Renal calculi Current Visit: Yes Status: Acute Assessment and plan: Multiple nonobstructing renal calculi in the distal right ureter as evidenced on CT Large conglomeration of calculi measuring approximately 10 mm within the distal right ureter, just proximal to the right UVJ The patient is experiencing significant discomfort as result of this, however no urinary symptoms There is also no evidence of obstruction or hydronephrosis at this time Pain is currently being managed with sublingual oxycodone as needed We will continue to monitor Urology consultation in the morning Monitor I's and O's (4) Dehydration Current Visit: Yes Status: Acute Assessment and plan: Significant volume depletion as evidenced by labs Patient had apparent hemoconcentration on CBC This is consistent with history of intractable nausea and vomiting as well as diarrhea Received 2 L of normal saline in the ED We will give 1L LR bolus on the floor Continue maintenance fluids at LR 125 mL per hour (5) Diabetes mellitus Current Visit: No Status: Chronic Assessment and plan: Diabetes mellitus type 2 with gastroparesis for glycemia Patient presents with blood glucose 216 He is currently nothing by mouth due to small bowel obstruction We will check blood glucose every 6 hours SSI Q6h Qualifiers: Diabetes mellitus type: type 2 Diabetes mellitus ocean transportation intermediary insulin use: with ocean transportation intermediary use Diabetes mellitus complication status: with hyperglycemia Qualified Code(s): E11.65 - Type 2 diabetes mellitus with hyperglycemia; Z79.4 - ferry terminal supervisor (current) use of insulin (6) Gastroparesis Current Visit: No Status: Chronic Assessment and plan: NPO, Zofran + Phenergan PRN (7) DVT prophylaxis Current Visit: Yes Status: Acute Assessment and plan: SQ Heparin - Time Spent With Patient Total time spent is greater than 50% in coordination of care (as documented) at patient's floor/unit and/or counseling patient:
[2018-07-25] MEDS ORDERED: Dextrose Gel 15 GM/37.5 ML TUBE PO PRN ×2 (23:40)
[2018-07-25] MEDS ORDERED: D5% in Water 1,000 ML IVC PRN (23:40)
[2018-07-25] MEDS ORDERED: *HR* Dextrose 50 % in Water (Syg) 50 ML SYRINGE IVP PRN (23:40)
[2018-07-26] MEDS: OXYCODONE Oral CONC 10 MG/0.5 ML ORAL.SYG SL PRN ×5 (00:11→23:26)
[2018-07-26] MEDS: Ringers Solution, Lactated 1,000 ML IVC SCH ×3 (00:12→21:07)
[2018-07-26] MEDS: Insulin LISPRO 300 UNITS/3 ML VIAL SQ SCH ×4 (03:20→18:03)
[2018-07-26 05:25] LABS: Basophils % 0.4 %; Eosinophils # 0.3 K/mcL (0.0-0.6); Eosinophils % 3.1 %; Hematocrit 50.5 % (37.5-50.1); Hemoglobin 17.8 g/dL (12.9-16.9); Immature Granulocytes % 0.2 % (0-4); Lymphocytes # 2.9 K/mcL (0.6-4.6); Lymphocytes % 27.9 %; Mean Corpuscular HGB Conc 35.2 g/dL (31.6-35.5); Mean Corpuscular Hemoglobin 30.6 pg (28.0-33.3); Mean Corpuscular Volume 86.8 fL (83.0-100.0); Mean Platelet Volume 12.5 fL (9.4-12.4); Monocytes # 1.3 K/mcL (0.0-1.3); Monocytes % 12.1 %; Neutrophils # 5.8 K/mcL (1.6-8.9); Platelet Count 164 K/mcL (140-400); Red Blood Count 5.82 M/mcL (4.19-5.50); Segmented Neutrophils % 56.3 %
[2018-07-26 05:34] LABS: INR 1.2; Prothrombin Time 13.1 Seconds (9.4-12.1)
[2018-07-26 05:43] LABS: Alanine Aminotransferase 14 Units/L (7-52); Albumin 3.8 g/dL (3.5-5.7); Albumin/Globulin Ratio 1.3 (1.1-2.2); Alkaline Phosphatase 65 Units/L (34-104); Aspartate Amino Transferase 9 Units/L (13-39); BUN/Creatinine Ratio 25 (6-26); Bilirubin,Total 0.8 mg/dL (0.3-1.0); Blood Urea Nitrogen 19 mg/dL (6-20); Calcium 8.7 mg/dL (8.6-10.3); Carbon Dioxide 24 mEq/L (23-29); Chloride 105 mEq/L (98-107); Globulin 2.9 g/dL (2.4-3.5); Glucose 195 mg/dL (70-105); Magnesium 1.4 mg/dL (1.6-2.6); Osmolality,Calculated 292 (280-300); Phosphorous 3.8 mg/dL (2.7-4.5); Potassium 3.5 mEq/L (3.5-5.1); Sodium 137 mEq/L (136-145); Total Protein 6.7 g/dL (6.4-8.9); eGFR For Non-African Americans > 60 (> 60)
[2018-07-26] MEDS: Pantoprazole 40 MG VIAL IVP SCH (05:43)
[2018-07-26] MEDS: *HR* Heparin 5,000 UNIT/ML VIAL SQ SCH ×3 (05:43→21:07)
--- NOTE | 2018-07-26 07:42 | Urology - Consult Note ---
Date of Encounter: 07/26/18 Time of Encounter: 07:40 - Assessment and Plan (1) Right ureteral stone Current Visit: Yes Status: Acute Assessment and plan: Patient has multiple small ureteral stones in the distal right ureter. These appear to be causing minimal obstruction and thus I do not believe they are contributing significantly to the patient's pain or nausea or vomiting. Recommend to continue with IV fluids. If patient's discomfort fails to resolve will need repeat CT scan and if stones are still present we will need to either place a ureteral stent or perform stone extraction. (2) Intractable vomiting with nausea Current Visit: Yes Status: Acute Assessment and plan: I believe this is most likely secondary to small bowel instruction given that he has had relief with NG tube. Qualifiers: Vomiting type: cyclical vomiting Qualified Code(s): G43.A1 - Cyclical v omiting, intractable (3) Abdominal pain Current Visit: No Status: Acute Assessment and plan: Likely mostly related to small bowel structure and but some component could be related to the distal ureteral stones. We will continue to follow along closely. Qualifiers: Abdominal location: generalized Qualified Code(s): R10.84 - Generalized abdominal pain Urology CN:HPI Consult date: 07/26/18 Reason for consult Urology: Other (right ureteral stones) Requesting physician: Jeramy Delarosa History of present illness: Alessandro is a 53-year-old male with a chronic history of recurrent small bowel obstruction. Patient also with chronic nausea and vomiting. Patient states that over the past few days he has had vague abdominal discomfort initially in his right lower quadrant with some in his left upper quadrant. Patient came to the emergency department at outside facility was found to have possible small bowel obstruction with transition point. Patient also was found to have a conglomeration of distal right ureteral stones with no significant proximal hydronephrosis. Patient had a NG tube placed last night which he states has significantly helped his abdominal discomfort. Patient did have a CT scan done at our facility and 2017 which did not reveal any obvious stones. Patient has been having problems with dehydration over the past few weeks. Past Med Surg Social Fam HX - Past Medical History Medical history: diabetes, hyperlipidemia, hypertension, TIA, other Additional medical history: gastroparesis Psychiatric history: anxiety, depression - Past Surgical History Surgical History: cholecystectomy, orthopedic, other, sinus surgery, other Additional surgical history: r knee surgery - Social History Smoking Status: Current every day smoker Packs per day: 1 Smokeless Tobacco Status: No Alcohol use: none Drug use: none - Family History Father Living Status: Hx Family Cancer: Yes Hx Family Endocrine Disorder: Yes Medications and Allergies Dronabinol [Marinol] 2.5 mg PO AD PRN 12/25/15 [History] Metoprolol XL (24 HR) Succ [Toprol Xl] 100 mg PO DAILY 12/25/15 [History] Atorvastatin [Lipitor] 40 mg PO HS 10/09/16 [History] Cholestyramine 4 gm PO BIDAC 10/09/16 [History] Fenofibrate [Lofibra] 160 mg PO DAILY 10/09/16 [History] Insulin Glargine,Hum.rec.anlog [Lantus Solostar] 45 unit SQ DAILY 10/09/16 [History] Sildenafil Citrate [Viagra] 100 mg PO DAILY PRN 10/09/16 [History] Tizanidine HCl [Zanaflex] 2 mg PO TID PRN 10/09/16 [History] Esomeprazole Magnesium [Nexium] 40 mg PO DAILY 30 Days capsule. 10/12/16 [Rx] Allergy/AdvReac Type Severity Reaction Status Date / Time No Known Allergies Allergy Verified 07/25/18 18:10 Review of Systems - Constitutional no chills, no fever(s) - EENT Nose, mouth and throat: no dizziness, no sore throat, no throat swelling - Cardiovascular no chest pain - Respiratory no cough - Gastrointestinal abdominal pain, nausea, vomiting - Genitourinary as per HPI - Musculoskeletal no back pain - Integumentary no erythema, no swelling - Psychiatric no confusion, no depression - Hematologic/Lymphatic no lymphadenopathy - Allergic/Immunologic no throat swelling, no wheezing Exam Initial Vital Signs Temp Pulse Resp BP Pulse Ox 98.2 F 119 14 140/86 96 07/25/18 22:09 07/25/18 22:09 07/25/18 22:09 07/25/18 22:09 07/25/18 22:09 General/Neuological: alert and oriented x 3 Eyes: normal pupils, non-icteric Neck: no lymphadenopathy noted, supple to touch, NG tube in place through nose Cardiovascular: RRR, no murmurs Respiratory: normal respiratory effort, clear bilaterally ABD: soft, nontender, no masses palpated, good bowel sounds Back: no pain on percussion bilaterally : normal phallus, normal scrotum, testicles and epididymides normal, urethral meatus normal. Skin: no rashes noted Musculoskeletal: normal gait, FROMx4 Urology Results - Labs 07/26/18 04:36 07/26/18 04:36 Abnormal lab results RBC 5.82 M/mcL (4.19-5.50) H 07/26/18 04:36 Hgb 17.8 g/dL (12.9-16.9) H D 07/26/18 04:36 Hct 50.5 % (37.5-50.1) H 07/26/18 04:36 MPV 12.5 fL (9.4-12.4) H 07/26/18 04:36 PT 13.1 Seconds (9.4-12.1) H 07/26/18 04:36 Glucose 195 mg/dL (70-105) H 07/26/18 04:36 Magnesium 1.4 mg/dL (1.6-2.6) L 07/26/18 04:36 AST 9 Units/L (13-39) L 07/26/18 04:36 Diabetes panel 07/26/18 Range/Units 04:36 Sodium 137 (136-145) mEq/L Potassium 3.5 (3.5-5.1) mEq/L Chloride 105 (98-107) mEq/L Carbon Dioxide 24 (23-29) mEq/L BUN 19 (6-20) mg/dL Creatinine 0.75 (0.70-1.30) mg/dL Glucose 195 H (70-105) mg/dL Calcium 8.7 (8.6-10.3) mg/dL AST 9 L (13-39) Units/L ALT 14 (7-52) Units/L Alkaline Phosphatase 65 (34-104) Units/L Albumin 3.8 (3.5-5.7) g/dL Calcium panel 07/26/18 Range/Units 04:36 Calcium 8.7 (8.6-10.3) mg/dL Phosphorus 3.8 (2.7-4.5) mg/dL Albumin 3.8 (3.5-5.7) g/dL Pituitary panel 07/26/18 Range/Units 04:36 Sodium 137 (136-145) mEq/L Potassium 3.5 (3.5-5.1) mEq/L Chloride 105 (98-107) mEq/L Carbon Dioxide 24 (23-29) mEq/L BUN 19 (6-20) mg/dL Creatinine 0.75 (0.70-1.30) mg/dL Glucose 195 H (70-105) mg/dL Calcium 8.7 (8.6-10.3) mg/dL Adrenal panel 07/26/18 Range/Units 04:36 Sodium 137 (136-145) mEq/L Potassium 3.5 (3.5-5.1) mEq/L Chloride 105 (98-107) mEq/L Carbon Dioxide 24 (23-29) mEq/L BUN 19 (6-20) mg/dL Creatinine 0.75 (0.70-1.30) mg/dL Glucose 195 H (70-105) mg/dL Calcium 8.7 (8.6-10.3) mg/dL Total Bilirubin 0.8 (0.3-1.0) mg/dL AST 9 L (13-39) Units/L ALT 14 (7-52) Units/L Alkaline Phosphatase 65 (34-104) Units/L Albumin 3.8 (3.5-5.7) g/dL All other labs normal. - Imaging CT scan - abdomen: image reviewed CT scan - pelvis: image reviewed Consult Discharge Plan - Plan Referrals: Fadia Christianson, TREV [Primary Care Provider] -
[2018-07-26] MEDS ORDERED: Chloraseptic Spray 177 ML BOTTLE MM PRN (09:45)
[2018-07-26] MEDS: Ondansetron 4 MG/2 ML VIAL IVP PRN ×2 (10:09→19:23)
--- NOTE | 2018-07-26 11:31 | General Surgery Consult Note ---
Date of Encounter: 07/26/18 Time of Encounter: 11:27 Assessment and Plan (1) SBO (small bowel obstruction) Current Visit: Yes Status: Acute 53M with multiple comorbidities with recurrent SBO; unusual to have a transition point at RLQ with minimal invasive surgery; cont NG tube await return of bowel function replace lytes activity as tolerated no surgery at present; History of Present Illness Consult date: 07/26/18 Reason for consult: other (vomiting) History of present illness: 53M h/o gastroparesis, cyclical vomiting syndrome prior episode of sbo who now presents with repeat episode of SBO. Patient states he has had multiple episodes of vomiting with associated bloating and PO intolerance. His surgical history consists of a laparoscopic cholecystectomy. He has had multiple colonoscopies which have all been negative for malignancy. A Ct scan was obtained, which was evaluated by me as well as prior CT scans for comparisons, which demonstrates SBO with RLQ transition point (prior CT scan confirms transition point at R midabdomen). General surgery was consulted for managemetn recommendations Past Med Surg Social Fam HX - Past Medical History Medical history: diabetes, hyperlipidemia, hypertension, TIA, other Additional medical history: gastroparesis Psychiatric history: anxiety, depression - Past Surgical History Surgical History: cholecystectomy, orthopedic, other, sinus surgery, other Additional surgical history: r knee surgery - Social History Smoking Status: Current every day smoker Packs per day: 1 Smokeless Tobacco Status: No Alcohol use: none Drug use: none - Family History Father Living Status: Hx Family Cancer: Yes Hx Family Endocrine Disorder: Yes Medications and Allergies Dronabinol [Marinol] 2.5 mg PO AD PRN 12/25/15 [History] Metoprolol XL (24 HR) Succ [Toprol Xl] 100 mg PO DAILY 12/25/15 [History] Atorvastatin [Lipitor] 40 mg PO HS 10/09/16 [History] Cholestyramine 4 gm PO BIDAC 10/09/16 [History] Fenofibrate [Lofibra] 160 mg PO DAILY 10/09/16 [History] Insulin Glargine,Hum.rec.anlog [Lantus Solostar] 45 unit SQ DAILY 10/09/16 [Hi story] Sildenafil Citrate [Viagra] 100 mg PO DAILY PRN 10/09/16 [History] Tizanidine HCl [Zanaflex] 2 mg PO TID PRN 10/09/16 [History] Esomeprazole Magnesium [Nexium] 40 mg PO DAILY 30 Days capsule. 10/12/16 [Rx] Allergy/AdvReac Type Severity Reaction Status Date / Time No Known Allergies Allergy Verified 07/25/18 18:10 Review of Systems All systems PM: 12 point ROS negative besides HPI findings General Surgery Exam Initial Vital Signs Temp Pulse Resp BP Pulse Ox 98.2 F 119 14 140/86 96 07/25/18 22:09 07/25/18 22:09 07/25/18 22:09 07/25/18 22:09 07/25/18 22:09 - General physical appearance no distress - Eyes normal ocular movement - ENT normocephalic - Neck no lymphadectomy - Respiratory normal expansion, normal respiratory effort - Cardiovascular Cardiovascular exam: Present: RRR - Abdomen Abdomen general surgery: Present: soft, non tender, distended - Integumentary Integumentary general surgery: Present: warm and dry - Neurologic Present: CN 2-12 grossly intact - Musculoskeletal Present: normal posture - Psychiatric Psychiatric general surgery: Present: A&Ox3 Exam Initial Vital Signs Temp Pulse Resp BP Pulse Ox 98.2 F 119 14 140/86 96 07/25/18 22:09 07/25/18 22:09 07/25/18 22:09 07/25/18 22:09 07/25/18 22:09 Results - Labs 07/26/18 04:36 07/26/18 04:36 Abnormal lab results RBC 5.82 M/mcL (4.19-5.50) H 07/26/18 04:36 Hgb 17.8 g/dL (12.9-16.9) H D 07/26/18 04:36 Hct 50.5 % (37.5-50.1) H 07/26/18 04:36 MPV 12.5 fL (9.4-12.4) H 07/26/18 04:36 PT 13.1 Seconds (9.4-12.1) H 07/26/18 04:36 Glucose 195 mg/dL (70-105) H 07/26/18 04:36 Magnesium 1.4 mg/dL (1.6-2.6) L 07/26/18 04:36 AST 9 Units/L (13-39) L 07/26/18 04:36 Diabetes panel 07/26/18 Range/Units 04:36 Sodium 137 (136-145) mEq/L Potassium 3.5 (3.5-5.1) mEq/L Chloride 105 (98-107) mEq/L Carbon Dioxide 24 (23-29) mEq/L BUN 19 (6-20) mg/dL Creatinine 0.75 (0.70-1.30) mg/dL Glucose 195 H (70-105) mg/dL Calcium 8.7 (8.6-10.3) mg/dL AST 9 L (13-39) Units/L ALT 14 (7-52) Units/L Alkaline Phosphatase 65 (34-104) Units/L Albumin 3.8 (3.5-5.7) g/dL Calcium panel 07/26/18 Range/Units 04:36 Calcium 8.7 (8.6-10.3) mg/dL Phosphorus 3.8 (2.7-4.5) mg/dL Albumin 3.8 (3.5-5.7) g/dL Pituitary panel 07/26/18 Range/Units 04:36 Sodium 137 (136-145) mEq/L Potassium 3.5 (3.5-5.1) mEq/L Chloride 105 (98-107) mEq/L Carbon Dioxide 24 (23-29) mEq/L BUN 19 (6-20) mg/dL Creatinine 0.75 (0.70-1.30) mg/dL Glucose 195 H (70-105) mg/dL Calcium 8.7 (8.6-10.3) mg/dL Adrenal panel 07/26/18 Range/Units 04:36 Sodium 137 (136-145) mEq/L Potassium 3.5 (3.5-5.1) mEq/L Chloride 105 (98-107) mEq/L Carbon Dioxide 24 (23-29) mEq/L BUN 19 (6-20) mg/dL Creatinine 0.75 (0.70-1.30) mg/dL Glucose 195 H (70-105) mg/dL Calcium 8.7 (8.6-10.3) mg/dL Total Bilirubin 0.8 (0.3-1.0) mg/dL AST 9 L (13-39) Units/L ALT 14 (7-52) Units/L Alkaline Phosphatase 65 (34-104) Units/L Albumin 3.8 (3.5-5.7) g/dL All other labs normal. - Imaging CT scan - abdomen: report reviewed, image reviewed CT scan - pelvis: report reviewed, image reviewed Consult Discharge Plan - Plan Referrals: Fadia Christianson, TREV [Primary Care Provider] -
[2018-07-26] MEDS: Chloraseptic Spray 177 ML BOTTLE MM PRN ×3 (13:27→19:22)
--- NOTE | 2018-07-26 14:12 | Event Note ---
Date of Encounter: 07/26/18 Time of Encounter: 09:30 He should not continues to have some abdominal discomfort. Patient reports that he had diarrhea prior to the onset of symptoms of nausea and vomiting. He has not had any further episodes of diarrhea a bowel movement since yesterday. Patient does report that his passing flatus. Surgery consult appreciated. We will continue to monitor closely. Continue NG tube to low intermittent suction. Continue IV fluids. Monitor blood sugars.
[2018-07-26] MEDS: *HR* Promethazine 25 MG/ML VIAL IVP PRN ×2 (15:10→23:27)
[2018-07-27] MEDS: Insulin LISPRO 300 UNITS/3 ML VIAL SQ SCH ×4 (00:36→18:33)
[2018-07-27] MEDS: Ondansetron 4 MG/2 ML VIAL IVP PRN ×2 (04:09→10:51)
[2018-07-27] MEDS: OXYCODONE Oral CONC 10 MG/0.5 ML ORAL.SYG SL PRN ×4 (04:10→21:14)
[2018-07-27] MEDS: Chloraseptic Spray 177 ML BOTTLE MM PRN ×5 (04:13→21:15)
[2018-07-27 04:35] LABS: Basophils % 0.5 %; Eosinophils # 0.2 K/mcL (0.0-0.6); Eosinophils % 2.8 %; Hematocrit 41.5 % (37.5-50.1); Hemoglobin 14.8 g/dL (12.9-16.9); Immature Granulocytes % 0.3 % (0-4); Lymphocytes # 2.4 K/mcL (0.6-4.6); Lymphocytes % 30.6 %; Mean Corpuscular HGB Conc 35.7 g/dL (31.6-35.5); Mean Corpuscular Hemoglobin 30.8 pg (28.0-33.3); Mean Corpuscular Volume 86.5 fL (83.0-100.0); Mean Platelet Volume 11.1 fL (9.4-12.4); Monocytes # 0.8 K/mcL (0.0-1.3); Neutrophils # 4.4 K/mcL (1.6-8.9); Platelet Count 152 K/mcL (140-400); Red Cell Distribution Width 11.8 % (11.5-14.5); Segmented Neutrophils % 55.8 %
[2018-07-27 04:51] LABS: BUN/Creatinine Ratio 18 (6-26); Blood Urea Nitrogen 13 mg/dL (6-20); Calcium 8.5 mg/dL (8.6-10.3); Carbon Dioxide 27 mEq/L (23-29); Chloride 104 mEq/L (98-107); Glucose 119 mg/dL (70-105); Osmolality,Calculated 285 (280-300); Potassium 3.3 mEq/L (3.5-5.1); Sodium 137 mEq/L (136-145); eGFR For Non-African Americans > 60 (> 60)
[2018-07-27] MEDS: Pantoprazole 40 MG VIAL IVP SCH (05:32)
[2018-07-27] MEDS: *HR* Heparin 5,000 UNIT/ML VIAL SQ SCH ×3 (05:32→21:14)
[2018-07-27] MEDS: Ringers Solution, Lactated 1,000 ML IVC SCH ×2 (06:25→15:48)
--- NOTE | 2018-07-27 07:39 | General Surgery Progress Note ---
<Jerry García S - Last Filed: 07/27/18 07:37> Date of Encounter: 07/27/18 Time of Encounter: 07:37 - Assessment and Plan (1) SBO (small bowel obstruction) Current Visit: Yes Status: Acute Patient had NGT placed yesterday 500 ml light brown output since midnight Start clamp trial, then suction after 4 hours If little output, will remove NGT Ordered KUB to check tube placement Replace electrolytes Patient had bowel movement this morning Subjective Patient reports: still having pain (Admits to pain in lower abdomen after bowel movement), flatus, bowel movement, afebrile Objective Vital Signs - Last 8 Hours Temp Pulse Resp BP Pulse Ox 07/27/18 05:53 97.9 F 97 14 115/70 96 07/27/18 00:31 98.5 F 104 14 131/78 93 Intake and Output 07/26/18 07/26/18 07/27/18 15:59 23:59 07:59 Intake Total 1000 / 1000 1000 / 1000 1000 / 1000 Output Total 0 / 0 350 / 350 750 / 750 Balance 1000 / 1000 650 / 650 250 / 250 Intake: IV Fluids 1000 / 1000 1000 / 1000 1000 / 1000 Lactated Ringers 1,000 ML @ 125 1000 / 1000 1000 / 1000 1000 / 1000 mls/hr IVC .Q8H [facility] Rx#: [id number] Oral 0 / 0 0 / 0 0 / 0 Output: Urine 0 / 0 350 / 350 250 / 250 Gastric Tube Lavage Amount 0 / 0 Left Nare 0 / 0 Gastric Drainage 500 / 500 Other: Meal Lunch NPO NPO Percent of Meal Consumed 0% Stool Size Large Moderate Stool Consistency liquid liquid Stool Color Green Green # Bowel Movements 0 # Bowel Movement Diapers 2 Weight 84.3 kg Blood Glucose* 149 104 191 Patient Weight 07/27/18 23:59 Weight 84.3 kg - General physical appearance well developed - Respiratory normal expansion, normal respiratory effort - Cardiovascular Cardiovascular exam: Present: RRR - Abdomen Abdomen: Present: bowel sounds present, soft, non tender - Psychiatric oriented to time, oriented to person, oriented to place - Labs 07/27/18 03:54 07/27/18 03:54 Diabetes panel 07/27/18 Range/Units 03:54 Sodium 137 (136-145) mEq/L Potassium 3.3 L (3.5-5.1) mEq/L Chloride 104 (98-107) mEq/L Carbon Dioxide 27 (23-29) mEq/L BUN 13 (6-20) mg/dL Creatinine 0.74 (0.70-1.30) mg/dL Glucose 119 H (70-105) mg/dL Calcium 8.5 L (8.6-10.3) mg/dL Calcium panel 07/27/18 Range/Units 03:54 Calcium 8.5 L (8.6-10.3) mg/dL Pituitary panel 07/27/18 Range/Units 03:54 Sodium 137 (136-145) mEq/L Potassium 3.3 L (3.5-5.1) mEq/L Chloride 104 (98-107) mEq/L Carbon Dioxide 27 (23-29) mEq/L BUN 13 (6-20) mg/dL Creatinine 0.74 (0.70-1.30) mg/dL Glucose 119 H (70-105) mg/dL Calcium 8.5 L (8.6-10.3) mg/dL Adrenal panel 07/27/18 Range/Units 03:54 Sodium 137 (136-145) mEq/L Potassium 3.3 L (3.5-5.1) mEq/L Chloride 104 (98-107) mEq/L Carbon Dioxide 27 (23-29) mEq/L BUN 13 (6-20) mg/dL Creatinine 0.74 (0.70-1.30) mg/dL Glucose 119 H (70-105) mg/dL Calcium 8.5 L (8.6-10.3) mg/dL Consult Discharge Plan - Plan Referrals: Fadia Christianson, TREV [Primary Care Provider] - <Jamil Serrano - Last Filed: 07/27/18 08:08> - Assessment and Plan (1) SBO (small bowel obstruction) Current Visit: Yes Status: Acute Objective Vital Signs - Last 8 Hours Temp Pulse Resp BP Pulse Ox 07/27/18 05:53 97.9 F 97 14 115/70 96 07/27/18 00:31 98.5 F 104 14 131/78 93 Intake and Output 07/26/18 07/27/18 07/27/18 23:59 07:59 15:59 Intake Total 1000 / 1000 1000 / 1000 Output Total 350 / 350 750 / 750 Balance 650 / 650 250 / 250 Intake: IV Fluids 1000 / 1000 1000 / 1000 Lactated Ringers 1,000 ML @ 125 1000 / 1000 1000 / 1000 mls/hr IVC .Q8H [facility] Rx#: [id number] Oral 0 / 0 0 / 0 Output: Urine 350 / 350 250 / 250 Gastric Drainage 500 / 500 Other: Meal NPO Stool Size Moderate Stool Consistency liquid Stool Color Green # Bowel Movements 0 Weight 84.3 kg Blood Glucose* 104 191 Patient Weight 07/27/18 23:59 Weight 84.3 kg - Labs 07/27/18 03:54 07/27/18 03:54 Diabetes panel 07/27/18 Range/Units 03:54 Sodium 137 (136-145) mEq/L Potassium 3.3 L (3.5-5.1) mEq/L Chloride 104 (98-107) mEq/L Carbon Dioxide 27 (23-29) mEq/L BUN 13 (6-20) mg/dL Creatinine 0.74 (0.70-1.30) mg/dL Glucose 119 H (70-105) mg/dL Calcium 8.5 L (8.6-10.3) mg/dL Calcium panel 07/27/18 Range/Units 03:54 Calcium 8.5 L (8.6-10.3) mg/dL Pituitary panel 07/27/18 Range/Units 03:54 Sodium 137 (136-145) mEq/L Potassium 3.3 L (3.5-5.1) mEq/L Chloride 104 (98-107) mEq/L Carbon Dioxide 27 (23-29) mEq/L BUN 13 (6-20) mg/dL Creatinine 0.74 (0.70-1.30) mg/dL Glucose 119 H (70-105) mg/dL Calcium 8.5 L (8.6-10.3) mg/dL Adrenal panel 07/27/18 Range/Units 03:54 Sodium 137 (136-145) mEq/L Potassium 3.3 L (3.5-5.1) mEq/L Chloride 104 (98-107) mEq/L Carbon Dioxide 27 (23-29) mEq/L BUN 13 (6-20) mg/dL Creatinine 0.74 (0.70-1.30) mg/dL Glucose 119 H (70-105) mg/dL Calcium 8.5 L (8.6-10.3) mg/dL - Attending Attestation patient seen and examined; i have reviewed all labs, imaging, and notes. I agree with the above assessment and plan and wish to add the following... 53M with recurrent SBO; now having bowel function; abd soft, (+)bowel sounds NPO IVF clamp NG tube if output <301cc after 4hrs, then okay to pull; will cont to follow
[2018-07-27 10:55] LABS: Estimated Average Glucose 180 mg/dl; Hemoglobin A1C 7.9 %
[2018-07-27] MEDS: *HR* Promethazine 25 MG/ML VIAL IVP PRN ×2 (12:10→18:53)
--- NOTE | 2018-07-27 14:44 | Internal Med Progress Note ---
Hospitalist Progress Note - Encounter Date of Encounter: 07/27/18 Time of Encounter: 14:42 - Subjective Interval History: Patient had a bowel movement this morning. Still has some cramping and discomfort in his abdomen but feels better overall. Does continue to have pain at site of NG tube in his throat. Chloraseptic helps. He continues to pass flatus. No hematemesis or melena. Patient with history of diabetes and possible gastroparesis hospitalized with possible small bowel obstruction/ileus. Has NG tube in place. Surgery following. NG tube clamped today. Will assess response. Also has distal ureteropelvic junction stones in the right side. Urology consulted. At this time they do not recommend any intervention. However if symptoms do not improve or worsen after his by mouth resolves, consider ureteral stents and reconsult urology. - Exam Vitals: Temp Pulse Resp BP Pulse Ox 97.9 F 74 16 145/77 99 07/27/18 05:53 07/27/18 10:12 07/27/18 10:12 07/27/18 10:12 07/27/18 10:12 Exam: General: Patient is alert, no acute distress, oriented x 3 ENT: Nasogastric tube in place. Respiratory: Good respiratory effort. Normal breath sounds. No wheezing or crackles. Cardiovascular: Regular rate and rhythm. s1 and s2 normal No clicks, rubs, ga llops, or murmurs. No pedal edema Abdomen: Abdomen is soft, mild tenderness in the epigastric region and right lower quadrant. Bowel sounds normal. Musculoskeletal: Spontaneously moving all extremities Skin: warm, dry, intact. - Assessment and Plan (1) SBO (small bowel obstruction) Current Visit: Yes Status: Suspected Assessment and Plan: Possible SBO versus ileus. KUB this morning shows possible continued ileus. Patient has had a bowel movement this morning. NG tube clamped per surgery. We will assess response. Continue IV fluids. Continue supportive care and antiemetics. Moderate risk for complications. (2) Intractable vomiting with nausea Current Visit: Yes Status: Acute Assessment and Plan: Due to possible partial small bowel obstruction versus ileus. Nasogastric tube in place. To low intermittent suction. Continue antiemetics as needed. (3) Dehydration Current Visit: Yes Status: Resolved Assessment and Plan: Continue treatment with IV fluids. (4) Gastroparesis Current Visit: Yes Status: Chronic Assessment and Plan: Patient may have underlying gastroparesis which may have exacerbated his nausea and vomiting. Recommend Reglan time of discharge. (5) Diabetes mellitus Current Visit: Yes Status: Chronic Assessment and Plan: Better controlled. Continue current insulin regimen. (6) Renal calculi Current Visit: Yes Status: Acute Assessment and Plan: Urology input appreciated. Patient having good urine output. We will continue to monitor closely. If pain does not resolve after his beer resolves, we will discuss with urology about need for possible stent. (7) DVT prophylaxis Current Visit: Yes Status: Acute Assessment and Plan: On subcutaneous heparin - Time Spent with Patient Total time spent is greater than 50% in coordination of care (as documented) at patient's floor/unit and/or counseling patient: Internal Medicine: Result - Labs CBC & Chem 7: 07/27/18 03:54 07/27/18 03:54 Labs: Short CBC 07/27/18 Range/Units 03:54 WBC 7.9 (4.3-11.1) K/mcL Hgb 14.8 D (12.9-16.9) g/dL Hct 41.5 (37.5-50.1) % Plt Count 152 (140-400) K/mcL Neutrophils # 4.4 (1.6-8.9) K/mcL BMP 07/27/18 03:54 Sodium 137 Potassium 3.3 L Chloride 104 Carbon Dioxide 27 BUN 13 Creatinine 0.74 Glucose 119 H Calcium 8.5 L - ABG Interpretation ABG results: PT/INR, D-dimer PT 13.1 Seconds (9.4-12.1) H 07/26/18 04:36 - Impressions Impressions KUB X-Ray 07/27/18 08:13 IMPRESSION: Appropriate positioning of nasogastric tube. Stable appearance of the GI tract. Air is seen throughout the colon extending to the level of the rectum. Pattern would favor ileus or enteritis. D/ / Allen Hardwick MD / Allen Hardwick MD Interpreting Provider: Allen Hardwick MD Consult Discharge Plan - Plan Referrals: Fadia Christianson, [employer] [Primary Care Provider] - (2) Intractable vomiting with nausea Qualifiers: Vomiting type: cyclical vomiting Qualified Code(s): G43.A1 - Cyclical vomiting, intractable (5) Diabetes mellitus Qualifiers: Diabetes mellitus type: type 2 Diabetes mellitus senior living insulin use: with senior living use Diabetes mellitus complication status: with hyperglycemia Qualified Code(s): E11.65 - Type 2 diabetes mellitus with hyperglycemia; Z79.4 - detention (current) use of insulin
[2018-07-27] MEDS: *HR* Metoprolol 5 MG/5 ML VIAL IVP SCH (16:43)
[2018-07-28] MEDS: *HR* Metoprolol 5 MG/5 ML VIAL IVP SCH ×4 (00:07→18:42)
[2018-07-28] MEDS: Insulin LISPRO 300 UNITS/3 ML VIAL SQ SCH ×4 (00:10→17:09)
[2018-07-28] MEDS: OXYCODONE Oral CONC 10 MG/0.5 ML ORAL.SYG SL PRN (05:43)
[2018-07-28] MEDS: Pantoprazole 40 MG VIAL IVP SCH (05:44)
[2018-07-28] MEDS: *HR* Heparin 5,000 UNIT/ML VIAL SQ SCH ×3 (05:45→20:46)
[2018-07-28] MEDS: Ringers Solution, Lactated 1,000 ML IVC SCH (05:45)
[2018-07-28] MEDS: *HR* Promethazine 25 MG/ML VIAL IVP PRN (05:45)
[2018-07-28 05:49] LABS: Basophils % 0.3 %; Eosinophils # 0.2 K/mcL (0.0-0.6); Eosinophils % 2.6 %; Hematocrit 45.5 % (37.5-50.1); Hemoglobin 15.9 g/dL (12.9-16.9); Immature Granulocytes % 0.3 % (0-4); Lymphocytes # 2.4 K/mcL (0.6-4.6); Lymphocytes % 25.6 %; Mean Corpuscular HGB Conc 34.9 g/dL (31.6-35.5); Mean Corpuscular Hemoglobin 30.3 pg (28.0-33.3); Mean Corpuscular Volume 86.7 fL (83.0-100.0); Mean Platelet Volume 10.8 fL (9.4-12.4); Monocytes # 0.8 K/mcL (0.0-1.3); Monocytes % 8.4 %; Neutrophils # 5.8 K/mcL (1.6-8.9); Platelet Count 140 K/mcL (140-400); Red Blood Count 5.25 M/mcL (4.19-5.50); Red Cell Distribution Width 11.5 % (11.5-14.5); Segmented Neutrophils % 62.8 %
[2018-07-28 06:08] LABS: BUN/Creatinine Ratio 12 (6-26); Blood Urea Nitrogen 8 mg/dL (6-20); Calcium 9.1 mg/dL (8.6-10.3); Carbon Dioxide 26 mEq/L (23-29); Chloride 104 mEq/L (98-107); Glucose 96 mg/dL (70-105); Osmolality,Calculated 286 (280-300); Potassium 3.2 mEq/L (3.5-5.1); Sodium 139 mEq/L (136-145); eGFR For Non-African Americans > 60 (> 60)
[2018-07-28 07:23] LABS: Magnesium 1.6 mg/dL (1.6-2.6); Phosphorous 4.3 mg/dL (2.7-4.5)
--- NOTE | 2018-07-28 08:23 | General Surgery Progress Note ---
Date of Encounter: 07/28/18 Time of Encounter: 08:09 - Assessment and Plan (1) SBO (small bowel obstruction) Current Visit: Yes Status: Suspected 53M h/o gastroparesis, cyclic vomiting syndrome, s/p lap simeon who presents with recurrent SBO; high residuals after clamp trial; HDS NPO cont NG tube to LIWS replace electrolytes (K@4, Mg@2; PO4@3) activity as tolerated SBFT with barium today Subjective Patient reports: no new complaints, bowel movement, other (high residuals after clamp trial yesterday) Objective Vital Signs - Last 8 Hours Temp Pulse Resp BP Pulse Ox 07/28/18 08:00 98.4 F 94 15 118/75 95 07/28/18 06:01 98 130/82 07/28/18 02:44 98.1 F 99 18 114/69 93 Intake and Output 07/27/18 07/28/18 07/28/18 23:59 07:59 15:59 Intake Total 1027 / 1027 0 / 0 Output Total 1275 / 1275 1650 / 1650 0 / 0 Balance -1275 / -1275 -623 / -623 0 / 0 Intake: IV Fluids 1027 / 1027 Lactated Ringers 1,000 ML @ 75 1027 / 1027 mls/hr IVC .[id number] [facility] Rx#: [id number] Oral 0 / 0 0 / 0 Output: Urine 625 / 625 650 / 650 0 / 0 Gastric Tube Lavage Amount 650 / 650 1000 / 1000 Left Nare 650 / 650 1000 / 1000 Other: # Bowel Movements 0 Weight 86 kg Blood Glucose* 80 94 Patient Weight 07/28/18 23:59 Weight 86 kg - General physical appearance no distress - Respiratory normal expansion, normal respiratory effort - Cardiovascular Cardiovascular exam: Present: RRR - Abdomen Abdomen: Present: soft, non tender, distended - Neurologic CN 2-12 grossly intact - Musculoskeletal normal posture - Labs 07/28/18 05:29 07/28/18 05:29 Diabetes panel 07/26/18 07/28/18 Range/Units 04:36 05:29 Sodium 139 (136-145) mEq/L Potassium 3.2 L (3.5-5.1) mEq/L Chloride 104 (98-107) mEq/L Carbon Dioxide 26 (23-29) mEq/L BUN 8 (6-20) mg/dL Creatinine 0.69 L (0.70-1.30) mg/dL Glucose 96 (70-105) mg/dL Hemoglobin A1c 7.9 H ( - 5.6) % Calcium 9.1 (8.6-10.3) mg/dL Calcium panel 07/28/18 Range/Units 05:29 Calcium 9.1 (8.6-10.3) mg/dL Phosphorus 4.3 (2.7-4.5) mg/dL Pituitary panel 07/28/18 Range/Units 05:29 Sodium 139 (136-145) mEq/L Potassium 3.2 L (3.5-5.1) mEq/L Chloride 104 (98-107) mEq/L Carbon Dioxide 26 (23-29) mEq/L BUN 8 (6-20) mg/dL Creatinine 0.69 L (0.70-1.30) mg/dL Glucose 96 (70-105) mg/dL Calcium 9.1 (8.6-10.3) mg/dL Adrenal panel 07/28/18 Range/Units 05:29 Sodium 139 (136-145) mEq/L Potassium 3.2 L (3.5-5.1) mEq/L Chloride 104 (98-107) mEq/L Carbon Dioxide 26 (23-29) mEq/L BUN 8 (6-20) mg/dL Creatinine 0.69 L (0.70-1.30) mg/dL Glucose 96 (70-105) mg/dL Calcium 9.1 (8.6-10.3) mg/dL Consult Discharge Plan - Plan Referrals: Fadia Christianson, TREV [Primary Care Provider] -
[2018-07-28] MEDS: Ondansetron 4 MG/2 ML VIAL IVP PRN (12:50)
[2018-07-28] MEDS ORDERED: Potassium Chloride 40 MEQ, Lidocaine 1% 2 ML in D5% in Water 500 ML IVPB ONE (13:59)
--- NOTE | 2018-07-28 21:03 | Internal Med Progress Note ---
Hospitalist Progress Note - Encounter Date of Encounter: 07/28/18 Time of Encounter: 19:00 - Subjective Interval History: SUBJECTIVE: The patient continues to have NG tube inserted. It is connected to low continuous wall suctioning. Denies nausea and vomiting. His abdomen seems to be mildly distended. It is not painful. Denies chest pain and difficulty breathing. Denies coughing and wheezing. OBJECTIVE: Skin: Free of rash and discoloration. ENMT: Oral/pharyngeal mucosa is normal in appearance. Eyes: Sclera is white. There is no discharge from eyes. Respiratory: Normal breath sounds; no crackles or wheezes. CV: Heart is regular; no gallop or murmur. GI: Abdomen is soft and not tender. There is no palpable mass or visceromegaly. Neuro: There is no focal deficits. ADDITIONAL DATA: His CBC is normal. Potassium is 3.2; 3.5 2 days ago. Magnesium is 1.6; 1.4 2 days ago. Small bowel follow-through with barium shows gas-filled distended loops of small bowel suggesting adynamic ileus or partial bowel obstruction. Some gas is seen at the level of the colon. There is a delayed transit of contrast material through the small bowel. Large bowel appears to opacify by approximately 5 hours and 30 minutes. ASSESSMENT AND PLAN: Ileus (versus a partial small bowel obstruction). He has underlying diabetic gastroparesis. I would try IV Reglan at 10 mg every 6 hours scheduled. See notes from general surgery. The patient will continue NG tube. Cyclic vomiting syndrome. He gets when necessary IV promethazine. Acute hypokalemia/acute hypomagnesemia. We will give him supplemental potassium chloride. We will check his electrolytes tomorrow morning. Hypertension. Under control. He gets scheduled IV Lopressor. Type 2 diabetes mellitus. He gets when necessary Humalog. - Exam Vitals: Temp Pulse Resp BP Pulse Ox 98.8 F 94 15 126/79 94 07/28/18 20:41 07/28/18 20:41 07/28/18 20:41 07/28/18 20:41 07/28/18 20:41 Exam: xx - Assessment and Plan (1) Ileus Current Visit: Yes Status: Acute (2) Diabetic gastroparesis Current Visit: Yes Status: Chronic (3) Cyclic vomiting syndrome Current Visit: Yes Status: Acute (4) Acute hypokalemia Current Visit: Yes Status: Acute (5) Hypomagnesemia Current Visit: Yes Status: Acute (6) Hypertension Current Visit: No Status: Acute - Time Spent with Patient Total time spent is greater than 50% in coordination of care (as documented) at patient's floor/unit and/or counseling patient: 25 - 35 minutes Plan of Care Discussed with: patient Internal Medicine: Result - Labs CBC & Chem 7: 07/28/18 05:29 07/28/18 05:29 Labs: Short CBC 07/28/18 Range/Units 05:29 WBC 9.2 (4.3-11.1) K/mcL Hgb 15.9 (12.9-16.9) g/dL Hct 45.5 (37.5-50.1) % Plt Count 140 (140-400) K/mcL Neutrophils # 5.8 (1.6-8.9) K/mcL BMP 07/28/18 05:29 Sodium 139 Potassium 3.2 L Chloride 104 Carbon Dioxide 26 BUN 8 Creatinine 0.69 L Glucose 96 Calcium 9.1 - ABG Interpretation ABG results: PT/INR, D-dimer PT 13.1 Seconds (9.4-12.1) H 07/26/18 04:36 - Impressions Impressions Small Bowel X-Ray 07/28/18 07:03 IMPRESSION: 1. Gas filled distended loops of small bowel which could suggest adynamic ileus or partial bowel obstruction. Gas is seen at level of the colon. 2. Delayed transit of contrast material through the small bowel. Large bowel appears to opacify by approximately 5 hours and 30 minutes. Clinical correlation recommended. D/ / Yariel Guillermo / Yariel Guillermo Interpreting Provider: Yariel Guillermo Consult Discharge Plan - Plan Referrals: Fadia Christianson, [employer] [Primary Care Provider] - (3) Cyclic vomiting syndrome Qualifiers: Vomiting Intractability: intractable Nausea presence: with nausea Qualified Code(s): G43.A1 - Cyclical vomiting, intractable (6) Hypertension Qualifiers: Hypertension type: essential hypertension Qualified Code(s): I10 - Essential (primary) hypertension
[2018-07-29] MEDS: Insulin LISPRO 300 UNITS/3 ML VIAL SQ SCH ×2 (00:05→08:24)
[2018-07-29] MEDS: *HR* Metoprolol 5 MG/5 ML VIAL IVP SCH ×3 (00:07→13:18)
[2018-07-29] MEDS: Ringers Solution, Lactated 1,000 ML IVC SCH (00:07)
[2018-07-29] MEDS: *HR* Heparin 5,000 UNIT/ML VIAL SQ SCH ×2 (05:57→13:18)
[2018-07-29] MEDS: Pantoprazole 40 MG VIAL IVP SCH (05:57)
[2018-07-29 06:40] LABS: Magnesium 1.8 mg/dL (1.6-2.6); Potassium 3.3 mEq/L (3.5-5.1)
[2018-07-29 07:07] VITALS: BP 109/69
--- NOTE | 2018-07-29 09:14 | General Surgery Progress Note ---
<Jerry García - Last Filed: 07/29/18 09:06> Date of Encounter: 07/29/18 Time of Encounter: 09:06 - Assessment and Plan (1) SBO (small bowel obstruction) Current Visit: Yes Status: Suspected Patient has a history of laparoscopic cholecystectomy with recurrent SBOs Patient had NGT pulled yesterday (07/28) Small bowel follow through with barium showed large bowel opacification at approximately 5 hours and 30 minutes Patient had bowel movement last night Tolerated clear liquids well, will advance to regular diet, if patient tolerates without nausea/vomiting will likely discharge Replace electrolytes Subjective Patient reports: no new complaints, feels better, tolerating liquids well, flatus, bowel movement, afebrile Narrative: Denies nausea, vomiting, chest pain, SOB. Objective Vital Signs - Last 8 Hours Temp Pulse Resp BP Pulse Ox 07/29/18 07:06 97.6 F 84 17 109/69 95 07/29/18 03:11 97.8 F 86 16 132/77 96 Intake and Output 07/28/18 07/29/18 07/29/18 23:59 07:59 15:59 Intake Total 1128 / 1128 762 / 762 Output Total 1 / 1 500 / 500 Balance 1127 / 1127 262 / 262 Intake: IV Fluids 408 / 408 522 / 522 Lactated Ringers 1,000 ML @ 75 408 / 408 mls/hr IVC .[id number] [facility] Rx#: [id number] KCl 40 MEQ Xylocaine 2 ML In 522 / 522 Dextrose 5% 500 ML @ 130.5 mls/ hr IVPB ONCE ONE Rx#:[id number] Oral 720 / 720 240 / 240 Output: Urine 1 / 1 500 / 500 Other: Meal CLEARS Weight 88 kg Blood Glucose* 158 211 Patient Weight 07/29/18 23:59 Weight 88 kg - General physical appearance well developed, well nourished - Respiratory normal expansion, normal respiratory effort - Cardiovascular Cardiovascular exam: Present: RRR - Abdomen Abdomen: Present: bowel sounds present, soft, tender (lower abdomen) - Integumentary no rash - Psychiatric oriented to time, oriented to person, oriented to place - Labs 07/28/18 05:29 07/29/18 05:42 Diabetes panel 07/29/18 Range/Units 05:42 Sodium 141 (136-145) mEq/L Potassium 3.3 L (3.5-5.1) mEq/L Chloride 105 (98-107) mEq/L Carbon Dioxide 27 (23-29) mEq/L Pituitary panel 07/29/18 Range/Units 05:42 Sodium 141 (136-145) mEq/L Potassium 3.3 L (3.5-5.1) mEq/L Chloride 105 (98-107) mEq/L Carbon Dioxide 27 (23-29) mEq/L Adrenal panel 07/29/18 Range/Units 05:42 Sodium 141 (136-145) mEq/L Potassium 3.3 L (3.5-5.1) mEq/L Chloride 105 (98-107) mEq/L Carbon Dioxide 27 (23-29) mEq/L - Imaging Additional Studies: small bowel follow through - reviewed Consult Discharge Plan - Plan Referrals: Fadia Christianson, TREV [Primary Care Provider] - <Jamil Serrano - Last Filed: 07/29/18 14:45> - Assessment and Plan (1) SBO (small bowel obstruction) Current Visit: Yes Status: Suspected Objective Vital Signs - Last 8 Hours Temp Pulse Resp BP Pulse Ox 07/29/18 07:06 97.6 F 84 17 109/69 95 Intake and Output 07/28/18 07/29/18 07/29/18 23:59 07:59 15:59 Intake Total 1128 / 1128 762 / 762 360 / 360 Output Total 500 / 500 Balance 1127 / 1127 262 / 262 360 / 360 Intake: IV Fluids 408 / 408 522 / 522 Lactated Ringers 1,000 ML @ 75 408 / 408 mls/hr IVC .[id number] [facility] Rx#: [id number] KCl 40 MEQ Xylocaine 2 ML In 522 / 522 Dextrose 5% 500 ML @ 130.5 mls/ hr IVPB ONCE ONE Rx#:[id number] Oral 720 / 720 240 / 240 360 / 360 Output: Urine 500 / 500 Other: Meal CLEARS Breakfast Percent of Meal Consumed 90% # Voids 1 # Bowel Movements 0 Weight 88 kg Blood Glucose* 158 211 254 Patient Weight 07/29/18 23:59 Weight 88 kg - Labs 07/28/18 05:29 07/29/18 05:42 Diabetes panel 07/29/18 Range/Units 05:42 Sodium 141 (136-145) mEq/L Potassium 3.3 L (3.5-5.1) mEq/L Chloride 105 (98-107) mEq/L Carbon Dioxide 27 (23-29) mEq/L Pituitary panel 07/29/18 Range/Units 05:42 Sodium 141 (136-145) mEq/L Potassium 3.3 L (3.5-5.1) mEq/L Chloride 105 (98-107) mEq/L Carbon Dioxide 27 (23-29) mEq/L Adrenal panel 07/29/18 Range/Units 05:42 Sodium 141 (136-145) mEq/L Potassium 3.3 L (3.5-5.1) mEq/L Chloride 105 (98-107) mEq/L Carbon Dioxide 27 (23-29) mEq/L - Attending Attestation patient seen and examined. I have reviewed all labs, imaging, and notes. I have discussed the plan in detail with the resident. I agree with the above assessment and plan and wish to add the following... 53M with SBO; no obstruction on SBFT, now having bowel movements, flatus, tolerating liquids; abd soft, non distended; adv diet as tolerated okay to discharge from general surgery standpoint; general surgery will sign off; please call with any new questions or concerns
[2018-07-29] MEDS ORDERED: Insulin LISPRO 300 UNITS/3 ML VIAL SQ ONE (09:27)
[2018-07-29] MEDS ORDERED: Insulin LISPRO 300 UNITS/3 ML VIAL SQ SCH ×3 (11:30→21:00)
--- NOTE | 2018-07-29 15:11 | Discharge Summary ---
Date of Encounter: 07/29/18 Time of Encounter: 15:00 - Discharge Diagnosis (1) Ileus Priority: Primary Status: Acute (2) Diabetic gastroparesis Priority: Primary Status: Chronic (3) Cyclic vomiting syndrome Priority: Primary Status: Acute Qualifiers: Vomiting Intractability: intractable Nausea presence: with nausea Qualified Code(s): G43.A1 - Cyclical vomiting, intractable (4) Acute hypokalemia Priority: Secondary Status: Acute (5) Hypomagnesemia Priority: Secondary Status: Acute (6) Hypertension Priority: Secondary Status: Chronic Qualifiers: Hypertension type: essential hypertension Qualified Code(s): I10 - Essential (primary) hypertension Hospital course: HOSPITAL COURSE: The patient is a 53-year-old male. He has had long-standing type 2 diabetes mellitus complicated with diabetic gastroparesis. He also carries diagnosis of cyclic vomiting syndrome. Due to the complexity of his medical problems he has already been seen by specialists at [facility] and [facility] ([place]). We admitted him with worsening of nausea and vomiting. Developed abdominal distention shortly after the admission. Imaging studies showed dilated bowel loops suggesting obstruction (versus adynamic ileus). NG tube was inserted. Surgery was consulted. It was yesterday when I added IV Reglan to his treatments. He quickly got better. Abdominal distention subsided. We discontinued NG tube. He was advanced to a diabetic diet today. He did well with breakfast and lunch. Not having any nausea or vomiting. He had a bowel movement after lunch; normal in appearance. CONDITION AT DISCHARGE: He feels good. Denies abdominal pain, nausea and vomiting. He is on diabetic diet; gets long-acting and short-acting insulin. He ambulates on his own. Skin: Free of rash and discoloration. Respiratory: Normal breath sounds with no crackles and wheezes bilaterally. CV: Heart is regular with no gallop or murmur. GI: Abdomen is flat and soft with no palpable mass or visceromegaly. Neuro exam: There is no focal deficits. Normal speech, swallowing and gait. SEE DISCHARGE ORDERS/MEDICATIONS.. Discharge discussed with: patient, family, nurse, case management - Time Spent with Patient Total time spent providing and/or coordinating discharge services: Greater than 30 minutes (45 minutes..) - Discharge Medications Prescriptions: Metoclopramide [Reglan] 10 mg PO QIDAC 30 Days #120 tablet Potassium Chloride 20 meq PO BID #60 tab.er.prt Home Medications: Metoprolol XL (24 HR) Succ [Toprol Xl] 100 mg PO DAILY 12/25/15 [History] Atorvastatin [Lipitor] 40 mg PO HS 10/09/16 [History] Sildenafil Citrate [Viagra] 100 mg PO DAILY PRN 10/09/16 [History] Tizanidine HCl [Zanaflex] 2 mg PO TID PRN 10/09/16 [History] Duloxetine HCl [Cymbalta] 60 mg PO BID 07/27/18 [History] Esomeprazole Magnesium [Nexium] 40 mg PO BID 07/27/18 [History] Meloxicam 15 mg PO DAILY 07/27/18 [History] diazePAM [Valium] 5 mg PO TID PRN 07/27/18 [History] rOPINIRole [Requip] 1 mg PO HS 07/27/18 [History] Insulin DETEMIR [Levemir] 30 unit SQ QAM [id number] 07/29/18 [Rx] Insulin LISPRO [HumaLOG] 0 units SQ HS vial 07/29/18 [Rx] Insulin LISPRO [HumaLOG] 0 units SQ TIDAC vial 07/29/18 [Rx] Insulin LISPRO [HumaLOG] 8 units SQ TIDWM vial 07/29/18 [Rx] Metoclopramide [Reglan] 10 mg PO QIDAC 30 Days #120 tablet 07/29/18 [Rx] Potassium Chloride 20 meq PO BID #60 tab.er.prt 07/29/18 [Rx] Allergies/Adverse Reactions: Allergy/AdvReac Type Severity Reaction Status Date / Time No Known Allergies Allergy Verified 07/25/18 18:10 Date of admission: 07/26/18 05:45 Primary care physician: Fadia Christianson CNP Consults: 07/25/18 23:18 Consult to Urology [CONS] Routine Consulting Provider: Urology Champion Reason for Consult: 10mm nonobstructing R Renal calculi in UPJ Call Completed: No 07/26/18 08:10 Consult to Surgery [CONS] Routine Consulting Provider: Surgery [facility] Reason for Consult: Partial SBO Time Notified: 08:11 Call Completed: Yes Discharging clinician: Julius M Sobieraj Anticipated date of discharge: 07/29/18 - Constitutional Vitals: Temp Pulse Resp BP Pulse Ox 97.6 F 84 17 109/69 95 07/29/18 07:06 07/29/18 07:06 07/29/18 07:06 07/29/18 07:06 07/29/18 07:06 General appearance: Present: A&O X 3, no acute distress, answers questions appropriately Exam: xx - Patient Status Disposition: Home, Self-Care Condition: Fair Functional capacity at discharge: independent ambulation Overall status at discharge: patient is back to baseline - Discharge Instructions Instructions: Kidney Stones (DC), Bowel Obstruction (DC) Follow Up With: Fadia Christianson, TREV [Primary Care Provider] - Additional Instructions: THE PATIENT IS TO SCHEDULE AN APPT WITH GASTROPARESIS SPECIALIST AT [facility] IN [place].. OPTIONAL -- FOLLOW-UP WITH UROLOGY.. LEVEMIR AND HUMALOG ARE TO BE SUBSTITUTED WITH PREVIOUSLY USED INSULINS.. FINGERSTICKS FOR GLUCOSE -- ROUTINE.. - Diet and Activity Activity: resume usual activities as tolerated Diet: diabetic diet - VTE Reasons for not Prescribing Prophylaxis: Treatment not Indicated - Low risk for VTE Deep Vein Thrombosis/Pulmonary Embolism Present on Admission: No
[2018-07-29] MEDS ORDERED: Metoclopramide 10 MG/2 ML VIAL IVP SCH (21:00)
[2018-07-30] MEDS ORDERED: Insulin DETEMIR 100 UNIT/ML X5UNITS SQ SCH (09:28)
== END 2018-07-29 17:46 | disposition home or self-care (01) | DRG 389 ==
LOC: 3ANU → SUATTDRO 07-26 05:45
PROVIDERS: ADMIT Pediatrics; ATTEND Internal Medicine

== ENCOUNTER 2019-07-23 12:29 | Inpatient (IN) ==
[2019-07-23 13:03] LABS: Bilirubin,Urine Negative (Negative); Blood,Urine Negative (Negative); Clarity,Urine Clear (Clear); Color,Urine Yellow (Yellow); Glucose,Urine (UA) Normal (Normal); Ketones,Urine Trace mg/dL (Negative); Leukocyte Esterase,Urine Negative (Negative); Nitrite,Urine Negative (Negative); Protein,Urine 30 mg/dL (Neg-Trace); Specific Gravity,Urine > 1.030 (1.010-1.025); Urobilinogen,Urine Normal (Normal)
[2019-07-23 13:28] LABS: Bacteria,Urine None Seen per hpf (None-Few); Hyaline Casts,Urine None Seen per lpf (None-Few); Squamous Epithelial Cell,Urine Few per lpf (None-Few); WBC,Urine 0-3 per hpf (0-3)
[2019-07-23 13:31] LABS: Amphetamine Screen,Urine Negative ng/mL (Cutoff=1000); Barbiturate Screen,Urine Negative ng/mL (Cutoff=200); Benzodiazepines Screen,Urine Positive ng/mL (Cutoff=200); Cannabinoid Screen,Urine Negative ng/mL (Cutoff = 50); Cocaine Screen,Urine Negative ng/mL (Cutoff= 300); Opiate Screen,Urine Positive ng/mL (Cutoff=300); Phencyclidine Screen,Urine Negative ng/mL (Cutoff=25)
[2019-07-23 14:04] LABS: Basophils % 0.3 %; Eosinophils # 0.2 K/mcL (0.0-0.6); Eosinophils % 1.8 %; Hemoglobin 16.7 g/dL (12.9-16.9); Immature Granulocytes % 0.4 % (0-4); Lymphocytes # 3.4 K/mcL (0.6-4.6); Lymphocytes % 32.9 %; Mean Corpuscular HGB Conc 35.5 g/dL (31.6-35.5); Mean Corpuscular Hemoglobin 32.2 pg (28.0-33.3); Mean Corpuscular Volume 90.6 fL (83.0-100.0); Mean Platelet Volume 10.3 fL (9.4-12.4); Monocytes # 0.8 K/mcL (0.0-1.3); Monocytes % 7.5 %; Neutrophils # 5.9 K/mcL (1.6-8.9); Platelet Count 163 K/mcL (140-400); Red Blood Count 5.19 M/mcL (4.19-5.50); Segmented Neutrophils % 57.1 %; White Blood Count 10.2 K/mcL (4.3-11.1)
[2019-07-23 14:39] LABS: Acetaminophen < 10 mcg/mL (10-20); BUN/Creatinine Ratio 18 (6-26); Blood Urea Nitrogen 13 mg/dL (6-20); Calcium 9.3 mg/dL (8.6-10.3); Carbon Dioxide 20 mEq/L (23-29); Chloride 105 mEq/L (98-107); Chol/HDL Ratio 3.3 (0-4.9); Cholesterol 115 mg/dL (< 200); Ethanol < 10 mg/dL (Less than 10); Glucose 226 mg/dL (70-105); HDL Cholesterol 35 mg/dL (40-59); LDL Cholesterol,Calculated 30 mg/dL (0-99); Osmolality,Calculated 289 (280-300); Potassium 4.3 mEq/L (3.5-5.1); Salicylate < 2.5 mg/dL (15.0-30.0); Sodium 136 mEq/L (136-145); Triglycerides 249 mg/dL (< 150); eGFR For African Americans > 60 (> 60); eGFR For Non-African Americans > 60 (> 60)
[2019-07-23] MEDS ORDERED: diazePAM 5 MG TABLET PO ONE (14:52)
[2019-07-23 15:46] LABS: Estimated Average Glucose 163 mg/dl
[2019-07-23] MEDS ORDERED: hydrOXYzine pamoate 25 MG CAPSULE PO PRN (17:48)
[2019-07-23] MEDS ORDERED: *HR* LORazepam 1 MG TABLET PO PRN (17:48)
[2019-07-23] MEDS ORDERED: traZODone 50 MG TABLET PO PRN (17:48)
[2019-07-23] MEDS ORDERED: Haloperidol Lactate 5 MG/ML VIAL IM PRN (17:48)
[2019-07-23] MEDS ORDERED: Acetaminophen 325 MG TABLET PO PRN (17:48)
[2019-07-23] MEDS ORDERED: MOM Conc 10 ML UD.LIQ PO PRN (17:48)
[2019-07-23] MEDS ORDERED: *HR* LORazepam 2 MG/ML VIAL IM PRN (17:48)
[2019-07-23] MEDS ORDERED: Mag Hydrox/Al Hydrox/Simeth 30 ML UDC PO PRN (17:48)
[2019-07-23] MEDS ORDERED: Dextrose Gel 15 GM/37.5 ML TUBE PO PRN ×2 (22:01)
[2019-07-23] MEDS: Divalproex (24 HR) 500 MG TABLET PO SCH (22:17)
[2019-07-23] MEDS: diazePAM 5 MG TABLET PO PRN (22:18)
[2019-07-23] MEDS: traZODone 50 MG TABLET PO PRN (22:18)
[2019-07-23] MEDS: FLUoxetine 20 MG CAPSULE PO SCH (22:18)
[2019-07-23] MEDS: Insulin LISPRO 300 UNITS/3 ML VIAL SQ SCH (22:55)
[2019-07-23] MEDS: tiZANidine 4 MG TABLET PO PRN (23:08)
[2019-07-24] MEDS: Divalproex (24 HR) 500 MG TABLET PO SCH ×2 (08:23→21:00)
[2019-07-24] MEDS: Insulin DETEMIR 100 UNIT/ML X5UNITS SQ SCH (08:24)
[2019-07-24] MEDS: FLUoxetine 20 MG CAPSULE PO SCH ×2 (08:25→08:26)
[2019-07-24] MEDS: Metoprolol XL (24 HR) Succ 50 MG TAB.ER.24H PO SCH (08:26)
[2019-07-24] MEDS: Insulin LISPRO 300 UNITS/3 ML VIAL SQ SCH ×4 (08:34→21:02)
[2019-07-24] MEDS: ARIPiprazole 5 MG TABLET PO SCH (10:11)
[2019-07-24] MEDS: Nicotine 21 MG PATCH.TD24 TD SCH (11:23)
[2019-07-24] MEDS: diazePAM 5 MG TABLET PO PRN ×2 (15:21→21:00)
[2019-07-24] MEDS: tiZANidine 4 MG TABLET PO PRN ×2 (16:36→21:00)
[2019-07-24] MEDS: traZODone 50 MG TABLET PO PRN (21:01)
[2019-07-25] MEDS: ARIPiprazole 5 MG TABLET PO SCH (09:41)
[2019-07-25] MEDS: Nicotine 21 MG PATCH.TD24 TD SCH (09:41)
[2019-07-25] MEDS: Divalproex (24 HR) 500 MG TABLET PO SCH ×2 (09:42→21:30)
[2019-07-25] MEDS: FLUoxetine 20 MG CAPSULE PO SCH ×2 (09:42)
[2019-07-25] MEDS: Metoprolol XL (24 HR) Succ 50 MG TAB.ER.24H PO SCH (09:42)
[2019-07-25] MEDS: Insulin LISPRO 300 UNITS/3 ML VIAL SQ SCH ×4 (09:43→20:50)
[2019-07-25] MEDS: Insulin DETEMIR 100 UNIT/ML X5UNITS SQ SCH (09:44)
[2019-07-25] MEDS: diazePAM 5 MG TABLET PO PRN ×2 (10:10→21:31)
[2019-07-25] MEDS: Gabapentin 300 MG CAPSULE PO SCH ×2 (10:43→21:30)
[2019-07-25] MEDS: tiZANidine 4 MG TABLET PO PRN ×2 (15:40→21:33)
[2019-07-25] MEDS: traZODone 50 MG TABLET PO PRN (21:31)
[2019-07-26] MEDS: tiZANidine 4 MG TABLET PO PRN ×3 (09:04→21:15)
[2019-07-26] MEDS: FLUoxetine 20 MG CAPSULE PO SCH ×2 (09:05→09:06)
[2019-07-26] MEDS: Metoprolol XL (24 HR) Succ 50 MG TAB.ER.24H PO SCH (09:05)
[2019-07-26] MEDS: diazePAM 5 MG TABLET PO PRN ×2 (09:05→21:15)
[2019-07-26] MEDS: ARIPiprazole 5 MG TABLET PO SCH (09:05)
[2019-07-26] MEDS: Gabapentin 300 MG CAPSULE PO SCH ×2 (09:06→21:15)
[2019-07-26] MEDS: Divalproex (24 HR) 500 MG TABLET PO SCH ×2 (09:06→21:14)
[2019-07-26] MEDS: Nicotine 21 MG PATCH.TD24 TD SCH (09:06)
[2019-07-26] MEDS: Insulin LISPRO 300 UNITS/3 ML VIAL SQ SCH ×4 (09:08→21:16)
[2019-07-26] MEDS: Insulin DETEMIR 100 UNIT/ML X5UNITS SQ SCH (09:08)
[2019-07-26] MEDS: Lurasidone 20 MG TABLET PO SCH (13:49)
[2019-07-26] MEDS: traZODone 50 MG TABLET PO PRN (21:22)
[2019-07-27] MEDS: Gabapentin 300 MG CAPSULE PO SCH ×2 (09:39→21:15)
[2019-07-27] MEDS: FLUoxetine 20 MG CAPSULE PO SCH (09:39)
[2019-07-27] MEDS: Metoprolol XL (24 HR) Succ 50 MG TAB.ER.24H PO SCH (09:39)
[2019-07-27] MEDS: Nicotine 21 MG PATCH.TD24 TD SCH (09:40)
[2019-07-27] MEDS: Insulin DETEMIR 100 UNIT/ML X5UNITS SQ SCH (09:41)
[2019-07-27] MEDS: Insulin LISPRO 300 UNITS/3 ML VIAL SQ SCH ×4 (09:41→21:21)
[2019-07-27] MEDS: Lurasidone 20 MG TABLET PO SCH (09:41)
[2019-07-27] MEDS: tiZANidine 4 MG TABLET PO PRN ×3 (09:42→21:17)
[2019-07-27] MEDS: diazePAM 5 MG TABLET PO PRN (09:42)
[2019-07-27 10:32] LABS: Alanine Aminotransferase 18 Units/L (7-52); Albumin 4.3 g/dL (3.5-5.7); Albumin/Globulin Ratio 1.5 (1.1-2.2); Alkaline Phosphatase 63 Units/L (34-104); Aspartate Amino Transferase 18 Units/L (13-39); BUN/Creatinine Ratio 23 (6-26); Bilirubin,Total 0.4 mg/dL (0.3-1.0); Blood Urea Nitrogen 16 mg/dL (6-20); Calcium 9.1 mg/dL (8.6-10.3); Carbon Dioxide 26 mEq/L (23-29); Chloride 102 mEq/L (98-107); Globulin 2.8 g/dL (2.4-3.5); Glucose 298 mg/dL (70-105); Osmolality,Calculated 294 (280-300); Potassium 4.7 mEq/L (3.5-5.1); Sodium 136 mEq/L (136-145); Total Protein 7.1 g/dL (6.4-8.9); eGFR For African Americans > 60 (> 60); eGFR For Non-African Americans > 60 (> 60)
[2019-07-27] MEDS: diazePAM 5 MG TABLET PO SCH ×2 (15:05→21:16)
[2019-07-27] MEDS: Divalproex (24 HR) 500 MG TABLET PO SCH (21:16)
[2019-07-27] MEDS: traZODone 50 MG TABLET PO PRN (21:17)
[2019-07-28] MEDS: Insulin LISPRO 300 UNITS/3 ML VIAL SQ SCH ×4 (09:06→21:16)
[2019-07-28] MEDS: Insulin DETEMIR 100 UNIT/ML X5UNITS SQ SCH (09:08)
[2019-07-28] MEDS: Metoprolol XL (24 HR) Succ 50 MG TAB.ER.24H PO SCH (09:09)
[2019-07-28] MEDS: Lurasidone 20 MG TABLET PO SCH (09:09)
[2019-07-28] MEDS: Nicotine 21 MG PATCH.TD24 TD SCH (09:10)
[2019-07-28] MEDS: FLUoxetine 20 MG CAPSULE PO SCH (09:10)
[2019-07-28] MEDS: Gabapentin 300 MG CAPSULE PO SCH ×2 (09:10→21:21)
[2019-07-28] MEDS: diazePAM 5 MG TABLET PO SCH ×3 (09:10→21:21)
[2019-07-28] MEDS: tiZANidine 4 MG TABLET PO PRN ×3 (09:14→21:24)
[2019-07-28] MEDS: Lurasidone 20 MG TABLET PO ONE ×2 (12:18→15:09)
[2019-07-28] MEDS ORDERED: Divalproex (24 HR) 500 MG TABLET PO SCH (21:00)
[2019-07-28] MEDS: traZODone 50 MG TABLET PO PRN (21:21)
[2019-07-29] MEDS: Metoprolol XL (24 HR) Succ 50 MG TAB.ER.24H PO SCH (08:59)
[2019-07-29] MEDS: tiZANidine 4 MG TABLET PO PRN (08:59)
[2019-07-29] MEDS: diazePAM 5 MG TABLET PO SCH (08:59)
[2019-07-29] MEDS: Gabapentin 300 MG CAPSULE PO SCH (08:59)
[2019-07-29] MEDS: Nicotine 21 MG PATCH.TD24 TD SCH (09:00)
[2019-07-29] MEDS: Insulin DETEMIR 100 UNIT/ML X5UNITS SQ SCH (09:00)
[2019-07-29] MEDS: Insulin LISPRO 300 UNITS/3 ML VIAL SQ SCH ×2 (09:02→11:47)
[2019-07-29 10:08] VITALS: BP 120/79
[2019-07-29] MEDS ORDERED: FLU Vac QV 19-20 (6Month+)/PF 0.5 ML SYRINGE IM ONE (12:19)
== END 2019-07-29 14:00 | disposition home or self-care (01) | DRG 885 ==
LOC: 1ANU 12:29 → EMEROOARM 12:29 → SUATTDRO 17:48 → 1ANU 18:48
PROVIDERS: ADMIT Psychiatry & Neurology Psychiatry; ATTEND Psychiatry & Neurology Psychiatry